=== PATIENT | female | born 1955 | race Caucasian/White ===

== ENCOUNTER 2017-03-24 09:45 | Day surgery (SDC) | payer MEDICAID ==
[~2017-03-24 09:45] MED LIST: Bupivacaine 0.5%/EPINEPHrine 1:200,000 50 ML MDV ONE
[2017-03-24] MEDS ORDERED: cefOXitin 2 GM in Sodium Chloride 0.9% 50 ML IV ONE (10:00)
[2017-03-24] MEDS ORDERED: HYDROmorphone/Normal Saline 15 MG/30 ML PCA IV PRN (10:23)
[2017-03-24] MEDS ORDERED: Naloxone 0.4 MG/ML SDV IVPUSH PRN (10:23)
[2017-03-24] MEDS ORDERED: Propofol 200 MG/20 ML SDV ONE (10:28)
[2017-03-24] MEDS ORDERED: Dexamethasone 4 MG/ML SDV ONE (10:28)
[2017-03-24] MEDS ORDERED: Midazolam 1 MG/ML 2 ML SDV ONE (10:28)
[2017-03-24] MEDS ORDERED: Rocuronium 50 MG/5 ML Vial ONE (10:28)
[2017-03-24] MEDS ORDERED: Neostigmine Methylsulfate 1 MG/ML 5 ML Syringe ONE (10:28)
[2017-03-24] MEDS ORDERED: fentaNYL 250 MCG/5 ML SDV ONE (10:28)
[2017-03-24] MEDS ORDERED: Ondansetron 4 MG/2 ML SDV ONE (10:28)
[2017-03-24] MEDS: Dextrose 5%-Lactated Ringers 1,000 ML IV SCH ×2 (10:35→17:52)
[2017-03-24] MEDS ORDERED: hydrOXYzine HCl 50 MG/ML SDV IM ONE (12:46)
[2017-03-24] MEDS ORDERED: Ondansetron 4 MG/2 ML SDV IVPUSH PRN (14:00)
[2017-03-24] MEDS ORDERED: Pantoprazole 40 MG Vial IVPUSH SCH (14:00)
[2017-03-24] MEDS ORDERED: Levothyroxine 88 MCG Tab PO SCH (14:00)
[2017-03-24] MEDS ORDERED: Lactated Ringers 500 ML IV ONE (15:15)
[2017-03-24] MEDS: cefOXitin 2 GM in Sodium Chloride 0.9% 50 ML IV SCH ×2 (18:09→23:11)
[2017-03-24] MEDS: Sertraline 50 MG Tab PO SCH (18:19)
[2017-03-24] MEDS: Levothyroxine 75 MCG Tab PO SCH (18:20)
[2017-03-24] MEDS: buPROPion 100 MG Tab PO SCH ×2 (18:20→20:54)
[2017-03-24] MEDS: Acetaminophen 500 MG Tab PO SCH ×2 (18:20→21:51)
[2017-03-24] MEDS ORDERED: diphenhydrAMINE 25 MG Cap PO PRN (22:56)
[2017-03-25] MEDS: HYDROmorphone 2 MG Tab PO PRN ×4 (02:38→16:54)
[2017-03-25] MEDS: Acetaminophen 500 MG Tab PO SCH (03:47)
[2017-03-25] MEDS: Dextrose 5%-Lactated Ringers 1,000 ML IV SCH (04:48)
[2017-03-25] MEDS: cefOXitin 2 GM in Sodium Chloride 0.9% 50 ML IV SCH ×3 (05:16→17:03)
[2017-03-25] MEDS: Levothyroxine 75 MCG Tab PO SCH (07:13)
[2017-03-25] MEDS ORDERED: Acetaminophen 500 MG Tab PO PRN (07:18)
[2017-03-25] MEDS ORDERED: Ibuprofen 800 MG Tab PO PRN (07:18)
[2017-03-25] MEDS ORDERED: PSEUDOEPHEDRINE PO SCH (09:00)
[2017-03-25] MEDS ORDERED: Sertraline 50 MG Tab PO SCH (09:00)
[2017-03-25] MEDS ORDERED: Levothyroxine 88 MCG Tab PO SCH (09:00)
[2017-03-25] MEDS ORDERED: CRANBERRY 1000 MG PO SCH ×2 (09:00)
[2017-03-25] MEDS ORDERED: CETIRIZINE PO SCH (09:00)
[2017-03-25] MEDS ORDERED: buPROPion 100 MG Tab PO SCH (09:00)
[2017-03-25] MEDS ORDERED: Non-Formulary Medication 1 Each (Omeprazole [Omeprazole] 40 MG) PO SCH (09:00)
[2017-03-25] MEDS ORDERED: Fluticasone Propionate Nasal Spray 16 GM Bottle NASBOTH SCH (09:00)
--- NOTE | 2017-03-25 09:10 | DISCH ---
ADMISSION DIAGNOSES: 1. Cholecystitis. 2. Hypothyroidism, unspecified. 3. Nasopharyngeal cancer. 4. Osteoarthritis, bilateral hips. 5. Major depression. 6. Chronic ethmoidal sinusitis. 7. Degenerative joint disease. 8. Glucose intolerance. 9. Hypercholesterolemia. 10.Colon adenoma in 2015. DISCHARGE DIAGNOSES: Laparoscopic cholecystectomy. Repair of incarcerated hernia at umbilical incisional site for biliary dyskinesia, cholelithiasis and incisional hernia. Date of surgery, 03/24/2017. HISTORY: Marixa Leal is a 61-year-old female with known cholecystitis. After preoperative evaluation and discussion of possible risks and possible complications, she wished to proceed with surgical procedure. HOSPITAL COURSE: Marixa had her surgery on 03/24/2017. She had no operative complications. She did have excessive sleepiness with anesthesia which she states is normal for her. On postop day #1, her pain was managed, her activity was good. She was eating well and taking in adequate fluids. She was ready to be discharged to home. PHYSICAL EXAMINATION: GENERAL: Fela Leal is a 61-year-old female. VITAL SIGNS: Height is 5 feet 5.5 inches, weight is 175 pounds 12.8 ounces. TPR is 98.6, 61, 18, blood pressure 126/76. HEENT: Negative. NECK: Supple. HEART: Regular rate and rhythm. LUNGS: Clear. ABDOMEN: Dressings dry and intact. Sutures look good. UMBERTO drain intact. This will be removed prior to discharge with a 4 x 4 over UMBERTO drain site. EXTREMITIES: Without peripheral edema. DISPOSITION: Discharged to home. FOLLOWUP APPOINTMENT: With Chasity Gonzalez PA-C, on 04/05/2017 at 10:00 a.m. MEDICATIONS: New prescription is Dilaudid 2 mg 1 to 2 tabs every 4 hours p.r.n. pain #40. HOME MEDICATIONS: 1. Continue acetaminophen 1000 mg every 4 hours. 2. Sertraline 5 mg daily. 3. Cranberry pills 1000 mg oral daily. 4. Flonase 2 sprays in each nostril daily. 5. Ibuprofen 800 mg oral every 8 hours. 6. Synthroid 75 mcg oral daily. 7. Omeprazole 40 mg oral daily. 8. Zoloft 100 mg oral daily. 9. Bupropion 50 mg daily. DIET AFTER DISCHARGE: Usual diet as tolerated. Drink 8 to 10 glasses of water a day. ACTIVITY AFTER DISCHARGE: No lifting greater than 10 pounds for 2 weeks. DRIVING AFTER DISCHARGE: Do not drive on pain medication. Shower bathing, may shower. Notify provider of fever, increased pain, nausea, or vomiting. Wound incision care, keep site clean and dry. Wear abdominal binder for 2 weeks and as tolerated. Use incentive spirometer 10 times every hour while awake for 2 weeks.
[2017-03-25] MEDS: buPROPion 100 MG Tab PO SCH (09:37)
[2017-03-25] MEDS: Sertraline 50 MG Tab PO SCH (09:38)
[2017-03-25] MEDS ORDERED: Pantoprazole 40 MG Tab.CR PO SCH (11:30)
[2017-03-25 15:05] VITALS: BP 88/57
--- NOTE | 2017-03-27 11:53 | OR ---
DATE OF PROCEDURE: 03/24/2017 PREOPERATIVE DIAGNOSIS: Biliary dyskinesia. POSTOPERATIVE DIAGNOSES: 1. Biliary dyskinesia associated with cholelithiasis. 2. Incisional hernia at previous umbilical incision site. OPERATIVE PROCEDURE: 1. Diagnostic laparoscopy with a cholecystectomy (14176). 2. Laparoscopic repair of incisional hernia (87293). ANESTHESIA: General. TRACK REPAIR PERSON: Chasity Gonzalez PA-C and ROSA Green INDICATION FOR PROCEDURE: This is a 61-year-old female presenting with some recurrent right upper quadrant pain radiating to the back with some nausea. A CCK-stimulated HIDA scan showed a below normal ejection fraction along with the CCK injection causing reproduction of her symptoms. Potential risks of the procedure including bleeding, infection, injury to the underlying viscera such as common bile duct as well as possibility of persistent symptoms postoperatively were all reviewed, and the patient wishes to proceed. DETAILS OF PROCEDURE: The patient was taken to the operating room and placed in a supine position. After general endotracheal anesthesia was induced, the abdomen was prepped and draped. A transverse epigastric incision was made and the peritoneal cavity entered under direct vision with an Optiview trocar inflated to 15 mmHg pressure with CO2. Laparoscope was reinserted. No underlying trocar insertion site injuries were seen. As one looked down toward the umbilicus, the patient was noted to have an incisional hernia at previous laparoscopic trocar site in the immediate subumbilical area. A transverse incision overlying this was made and the 12 mm trocar was then placed directly through the midportion of the hernia. This was then used for the camera port for the cholecystectomy phase of the procedure with the camera being brought down that location. A 5 mm trocar was then placed in the right upper quadrant. The gallbladder was then examined and noted to be edematous particularly in the area of the gallbladder neck and cystohepatic triangle. The gallbladder was retracted anteriorly and laterally, and dissection began at the gallbladder neck and continued around the gallbladder neck and cystic duct junction. Once that area was well-delineated as was the cystic artery, both structures were clipped 3 times proximally and once distally and divided. The gallbladder was then dissected off the gallbladder bed using Harmonic scalpel and delivered through the upper midline port. It was noted to contain multiple small stones within it. The area of dissection was inspected. No bleeding or bile leaks were seen. A Ivan-Lane drain was then placed through the right lateral trocar site and positioned into the area of the gallbladder bed. The camera was then brought back up to the epigastric site and each trocar at the subumbilical hernia location was then removed. This hernia was then closed with a series of 0 Vicryl sutures placed with the laparoscopic suture passer. Once these were in place with a transverse orientation in terms of the closure, the epigastric trocar was removed, the peritoneal cavity deflated with this. The sutures at the subumbilical hernia site were then tied and thus the hernia repaired. The epigastric site had passed obliquely through some musculature and not need to be closed at fascia level as there was an intact musculature underlying it. The skin at each of the incision was closed with 4-0 Vicryl skin stitch. Dressing was applied. The patient was taken to the recovery room in satisfactory condition. Physician purchasing assistant, Chasity Gonzalez, played an essential role in assisting in this case, helping to position the patient, retract structures as needed, suturing and cutting sutures when indicated, her presence improved the patient's safety and decreased the operative time. Jorge Cagle MD /[id number]
== END 2017-03-25 17:50 | disposition home or self-care (01) ==
LOC: JP.SDS 09:45 → JP.MS 13:10 → JP.SDS 03-25 17:50
PROVIDERS: ATTEND Surgery
DX: K80.10 Calculus of gallbladder with chronic cholecystitis without obstruction (principal); K43.2 Incisional hernia without obstruction or gangrene; Z88.1 Allergy status to other antibiotic agents; Z88.2 Allergy status to sulfonamides; Z91.030 Bee allergy status; Z88.8 Allergy status to other drugs, medicaments and biological substances; K21.9 Gastro-esophageal reflux disease without esophagitis; F32.9 Major depressive disorder, single episode, unspecified; E03.9 Hypothyroidism, unspecified; Z96.642 Presence of left artificial hip joint; Z98.890 Other specified postprocedural states; Z79.899 Other long term (current) drug therapy; Z91.09 Other allergy status, other than to drugs and biological substances; Z87.891 Personal history of nicotine dependence
CPT/HCPCS: 36415; 47562; 49654; 82247; 84075; 85027; 88304; 94762; A9270; C9113; J0694; J1100; J1170; J2405; J2704; J3010; J3410; J7042; J7050; J2250

== ENCOUNTER 2017-06-09 08:51 | Day surgery (SDC) | payer MEDICAID ==
[~2017-06-09 08:51] MED LIST changes: -Bupivacaine 0.5%/EPINEPHrine 1:200,000 50 ML MDV ONE; +Dextrose 5%-Lactated Ringers 1,000 ML IV SCH; +Midazolam 1 MG/ML 2 ML SDV ONE; +Propofol 200 MG/20 ML SDV ONE; +fentaNYL 100 MCG/2 ML SDV ONE
[2017-06-09] MEDS ORDERED: Dextrose 5%-Lactated Ringers 1,000 ML IV SCH ×2 (09:45→11:15)
[2017-06-09 13:05] VITALS: BP 94/60
--- NOTE | 2017-06-13 13:45 | OR ---
DATE OF PROCEDURE: 06/09/2017 PREOPERATIVE DIAGNOSIS: History of colon polyps. POSTOPERATIVE DIAGNOSIS: Normal colonoscopic examination. OPERATIVE PROCEDURE: Flexible colonoscopy. ANESTHESIA: IV sedation. INDICATION FOR PROCEDURE: This is a 61-year-old female presenting with both, a family history of colon carcinoma as well as personal history of polyps. Plan is to treat her with a followup colonoscopy with biopsies and/or polypectomy as indicated. Potential risks including bleeding and perforation were discussed, and the patient wishes to proceed. DETAILS OF PROCEDURE: The patient was taken to the operating room and placed in a left lateral decubitus position. IV sedation was administered, after which an initial digital rectal exam was performed and was unremarkable. Colonoscope was then passed into the rectum with retroflexion revealing uncomplicated hemorrhoidal columns. The scope was eventually passed to the level of the cecum. The prep was fair. There was some liquid stool present obscuring small areas of the mucosal surface to that level. There were no abnormalities noted. Specifically, no diverticula. No areas of colitis, no polyps or other signs of neoplasia. The scope was then withdrawn and the findings were reconfirmed, and the procedure concluded. The patient was taken to the recovery room in satisfactory condition. Recommendation would be to repeat this colonoscopy in 5 years given the personal family history of colon neoplasia. Jorge Cagle MD /[id number]
== END 2017-06-09 13:42 | disposition home or self-care (01) ==
LOC: JP.SDS 08:51
PROVIDERS: ATTEND Surgery
DX: Z12.11 Encounter for screening for malignant neoplasm of colon (principal); E78.00 Pure hypercholesterolemia, unspecified; E03.9 Hypothyroidism, unspecified; Z86.010 Personal history of colon polyps; Z80.0 Family history of malignant neoplasm of digestive organs; Z79.899 Other long term (current) drug therapy; Z98.890 Other specified postprocedural states
CPT/HCPCS: 45378; J2250; J2704; J3010; J7042

== ENCOUNTER 2017-06-27 10:20 | Emergency (ER) | payer MEDICAID ==
[2017-06-27 10:43] VITALS: BP 109/66
[2017-06-27] MEDS ORDERED: Triamcinolone Acetonide 40 MG/ML 1 ML MDV INJECT ONE (11:09)
--- NOTE | 2017-06-27 11:15 | EDM.PDOC ---
ED HPI GENERAL MEDICAL PROBLEM - General Chief Complaint: Skin Complaint Stated Complaint: RASH THAT REALLY ITCHES Time Seen by Provider: 06/27/17 11:17 Source of Information: Reports: Patient History Limitations: Reports: No Limitations - History of Present Illness INITIAL COMMENTS - FREE TEXT/NARRATIVE: pt arrived with a rash on her forehead and a patch on the left back area. This is not painful. . It is very itchy. Onset: Other ( started about 24 hours ago. ) Duration: Hour(s): Location: Reports: Face, Back Associated Symptoms: Reports: No Other Symptoms - Related Data Allergies Allergy/AdvReac Type Severity Reaction Status Date / Time piroxicam [From Feldene] Allergy Rash Verified 06/27/17 10:43 propoxyphene napsylate Allergy Swelling Verified 06/27/17 10:43 [From Darvocet-N] sulfamethoxazole Allergy Rash Verified 06/27/17 10:43 [From Bactrim] tizanidine Allergy Cannot Verified 06/27/17 10:43 Remember trimethoprim [From Bactrim] Allergy Rash Verified 06/27/17 10:43 venom-honey bee Allergy Swelling Verified 06/27/17 10:43 [bee venom (honey bee)] codeine AdvReac Hallucinati Verified 06/27/17 10:43 ons morphine AdvReac Hallucinati Verified 06/27/17 10:43 ons pentazocine lactate AdvReac Hallucinati Verified 06/27/17 10:43 [From Talwin] ons environmental Allergy Cannot Uncoded 06/03/17 14:30 Remember Home Meds: Home Meds Cetirizine HCl/Pseudoephedrine [ZyrTEC-D] 5 mg PO DAILY 06/22/14 [History] Omeprazole 40 mg PO DAILY 06/22/14 [History] Sertraline [Zoloft] 100 mg PO DAILY 06/22/14 [History] Acetaminophen 1,000 mg PO Q4H PRN 09/17/14 [History] Cranberry 1,000 mg PO DAILY 02/03/15 [History] Levothyroxine [Synthroid] 75 mcg PO DAILY 10/01/15 [History] buPROPion [Wellbutrin] 50 mg PO BID 10/02/15 [History] Fluticasone Propionate [Flonase] 2 spray NS DAILY 12/02/16 [History] Ibuprofen [Motrin] 800 mg PO Q8HR PRN 12/02/16 [History] HYDROmorphone [Dilaudid] 0 mg PO Q4H PRN #40 tablet 03/25/17 [Rx] Triamcinolone Acetonide 15 gm TP DAILY 05/24/17 [History] Past Medical History HEENT History: Reports: Allergic Rhinitis, Cataract, Hard of Hearing, Impaired Vision, Otitis Media, Sinusitis, Other (See Below) Other HEENT History: nosopharyngeal CA with radiotherapy Cardiovascular History: Reports: High Cholesterol, Other (See Below) Other Cardiovascular History: abnormal EKG Respiratory History: Reports: Bronchitis, Recurrent Gastrointestinal History: Reports: Chronic Constipation, Colon Polyp, Gastritis , GERD, Hiatal Hernia, Irritable Bowel Syndrome, Other (See Below) Other Gastrointestinal History: colon adenoma Genitourinary History: Reports: UTI, Recurrent, Other (See Below) Other Genitourinary History: urinary frequency 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 Dermatologic History: Reports: Eczema, Other (See Below) Other Dermatologic History: hands eczema - Infectious Disease History Infectious Disease History: Reports: Chicken Pox, Influenza, Measles, Mononucleosis, Mumps - Past Surgical History HEENT Surgical History: Reports: Cataract Surgery, Myringotomy w Tube(s) GI Surgical History: Reports: Appendectomy, Cholecystectomy, Colonoscopy, EGD Endocrine Surgical History: Reports: None Musculoskeletal Surgical History: Reports: Arthroscopic Knee, Carpal Tunnel, Ganglion Cyst, Hip Replacement, Shoulder Surgery, Other (See Below) Other Musculoskeletal Surgeries/Procedures:: foot surgery, rotator cuff repair Oncologic Surgical History: Reports: None, Other (See Below) Social & Family History - Family History Family Medical History: Noncontributory HEENT: Reports: Cataract, Impaired Vision Cardiac: Reports: Bypass, [place], Pacemaker Musculoskeletal: Reports: Osteoarthritis, Osteoporosis, RA Endocrine/Metabolic: Reports: Diabetes, type II, Hypothyroidism Oncologic: Reports: Colon - Tobacco Use Smoking Status *Q: Never Smoker Years of Tobacco use: 10 Used Tobacco, but Quit: Yes Month Tobacco Last Used: 0 Second Hand Smoke Exposure: No - Caffeine Use Caffeine Use: Reports: None - Alcohol Use Days Per Week of Alcohol Use: 0 - Recreational Drug Use Recreational Drug Use: No ED ROS GENERAL - Review of Systems Review Of Systems: See Below Constitutional: Reports: No Symptoms HEENT: Reports: No Symptoms Respiratory: Reports: No Symptoms Cardiovascular: Reports: No Symptoms Endocrine: Reports: No Symptoms GI/Abdominal: Reports: No Symptoms : Reports: No Symptoms Musculoskeletal: Reports: No Symptoms Skin: Reports: Rash Neurological: Reports: No Symptoms Psychiatric: Reports: No Symptoms Hematologic/Lymphatic: Reports: No Symptoms Immunologic: Reports: No Symptoms ED EXAM, SKIN/RASH Exam: See Below Text/Narrative:: pt arrived with a rash on the forehead and a patch on the left side of her back. Exam Limited By: No Limitations General Appearance: Alert, Anxious Ears: Normal TMs Nose: Normal Inspection Throat/Mouth: Normal Inspection Head: Atraumatic Neck: Normal Inspection Respiratory/Chest: No Respiratory Distress Cardiovascular: Regular Rate, Rhythm GI/Abdominal: Soft, Non-Tender (Female) Exam: Deferred Rectal (Female) Exam: Deferred Extremities: Normal Inspection Psychiatric: Anxious Skin: Warm Course - Vital Signs Last Recorded V/S: Last Vital Signs Temp 35.0 C L 06/27/17 10:43 Pulse 84 06/27/17 10:43 Resp 16 06/27/17 10:43 BP 109/66 06/27/17 10:43 Pulse Ox 96 06/27/17 10:43 - Orders/Labs/Meds Meds: Medications Discontinued Medications Generic Name Dose Route Start Last Admin Trade Name Lanie PRN Reason Stop Dose Admin Triamcinolone Acetonide 60 mg 06/27/17 11:09 Kenalog-40 INJECT 06/27/17 11:10 ASDIRECTED ONE - Re-Assessments/Exams Free Text/Narrative Re-Assessment/Exam: 06/27/17 11:33 pt arrived with rash which looked like poison gabriela . She was given kenalog 60mg im. Departure - Departure Time of Disposition: 11:11 Disposition: Home, Self-Care 01 Condition: Fair Clinical Impression: Poison gabriela - Discharge Information Referrals: Marlyn Villalpando MD [Primary Care Provider] - Forms: ED Department Discharge Care Plan Goals: cool pack rt eye. , kenalog cream to facial area qid-- do not use more than 1 week. benadryl 50mg q6h prn for itching. rtc if problems
== END 2017-06-27 11:37 | disposition home or self-care (01) ==
LOC: JP.ED 10:20
DX: L23.7 Allergic contact dermatitis due to plants, except food (principal); E78.00 Pure hypercholesterolemia, unspecified; K21.9 Gastro-esophageal reflux disease without esophagitis; M19.90 Unspecified osteoarthritis, unspecified site; E03.9 Hypothyroidism, unspecified; F32.9 Major depressive disorder, single episode, unspecified; M81.0 Age-related osteoporosis without current pathological fracture; Z98.890 Other specified postprocedural states; Z85.818 Personal history of malignant neoplasm of other sites of lip, oral cavity, and pharynx; Z90.49 Acquired absence of other specified parts of digestive tract; Z79.899 Other long term (current) drug therapy; Z88.5 Allergy status to narcotic agent; Z88.1 Allergy status to other antibiotic agents; Z91.030 Bee allergy status; Z88.2 Allergy status to sulfonamides
CPT/HCPCS: 96372; 99283; J3301

== ENCOUNTER 2019-04-06 14:15 | Emergency (ER) | payer MEDICAID ==
[2019-04-06 14:42] VITALS: BP 111/68
--- NOTE | 2019-04-06 14:54 | EDM.PDOC ---
ED HPI GENERAL MEDICAL PROBLEM - General Chief Complaint: Gastrointestinal Problem Stated Complaint: HEARTBURN, UPPER ABD PAIN Time Seen by Provider: 04/06/19 14:35 Source of Information: Reports: Patient History Limitations: Reports: No Limitations - History of Present Illness INITIAL COMMENTS - FREE TEXT/NARRATIVE: 63-year-old female with a known hiatal hernia, chronic reflux has been having an increase in symptoms over the past several weeks. She admits she doesn't take her Prilosec regularly, but she took some yesterday and this morning and then ate some chocolate and had significant epigastric pain for most of the morning. The only thing that helps is vanilla ice cream. Tums sometimes helps briefly. Onset: Unknown/Unsure Location: Reports: Other (Pain is in the upper abdomen, no radiation) Quality: Reports: Burning Associated Symptoms: Denies: Chest Pain, Cough, Fever/Chills, Headaches, Nausea/ Vomiting, Shortness of Breath Lower Abdominal Pain Score (Numeric/FACES): 1 - Related Data Allergies Allergy/AdvReac Type Severity Reaction Status Date / Time piroxicam [From Feldene] Allergy Rash Verified 06/27/17 10:43 propoxyphene napsylate Allergy Swelling Verified 06/27/17 10:43 [From Darvocet-N] sulfamethoxazole Allergy Rash Verified 06/27/17 10:43 [From Bactrim] tizanidine Allergy Cannot Verified 06/27/17 10:43 Remember trimethoprim [From Bactrim] Allergy Rash Verified 06/27/17 10:43 venom-honey bee Allergy Swelling Verified 06/27/17 10:43 [bee venom (honey bee)] codeine AdvReac Hallucinati Verified 06/27/17 10:43 ons morphine AdvReac Hallucinati Verified 06/27/17 10:43 ons pentazocine lactate AdvReac Hallucinati Verified 06/27/17 10:43 [From Gagan] ons environmental Allergy Cannot Uncoded 06/03/17 14:30 Remember Home Meds: Home Meds Cetirizine HCl/Pseudoephedrine [ZyrTEC-D] 5 mg PO DAILY 06/22/14 [History] Omeprazole 40 mg PO DAILY 06/22/14 [History] Sertraline [Zoloft] 100 mg PO DAILY 06/22/14 [History] Acetaminophen 1,000 mg PO Q4H PRN 09/17/14 [History] Cranberry 1,000 mg PO DAILY 02/03/15 [History] Levothyroxine [Synthroid] 75 mcg PO DAILY 10/01/15 [History] buPROPion [Wellbutrin] 50 mg PO BID 10/02/15 [History] Fluticasone Propionate [Flonase] 2 spray NS DAILY 12/02/16 [History] Ibuprofen [Motrin] 800 mg PO Q8HR PRN 12/02/16 [History] Triamcinolone Acetonide 15 gm TP DAILY 05/24/17 [History] Past Medical History HEENT History: Reports: Allergic Rhinitis, Cataract, Hard of Hearing, Impaired Vision, Otitis Media, Sinusitis, Other (See Below) Other HEENT History: nosopharyngeal CA with radiotherapy Cardiovascular History: Reports: High Cholesterol, Other (See Below) Other Cardiovascular History: abnormal EKG Respiratory History: Reports: Bronchitis, Recurrent Gastrointestinal History: Reports: Chronic Constipation, Colon Polyp, Gastritis , GERD, Hiatal Hernia, Irritable Bowel Syndrome, Other (See Below) Other Gastrointestinal History: colon adenoma Genitourinary History: Reports: UTI, Recurrent, Other (See Below) Other Genitourinary History: urinary frequency 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 Dermatologic History: Reports: Eczema, Other (See Below) Other Dermatologic History: hands eczema - Infectious Disease History Infectious Disease History: Reports: Chicken Pox, Influenza, Measles, Mononucleosis, Mumps - Past Surgical History HEENT Surgical History: Reports: Cataract Surgery, Myringotomy w Tube(s) GI Surgical History: Reports: Appendectomy, Cholecystectomy, Colonoscopy, EGD Endocrine Surgical History: Reports: None Musculoskeletal Surgical History: Reports: Arthroscopic Knee, Carpal Tunnel, Ganglion Cyst, Hip Replacement, Shoulder Surgery, Other (See Below) Other Musculoskeletal Surgeries/Procedures:: foot surgery, rotator cuff repair Oncologic Surgical History: Reports: None, Other (See Below) Social & Family History - Family History Family Medical History: Noncontributory HEENT: Reports: Cataract, Impaired Vision Cardiac: Reports: Bypass, [place], Pacemaker Musculoskeletal: Reports: Osteoarthritis, Osteoporosis, RA Endocrine/Metabolic: Reports: Diabetes, type II, Hypothyroidism Oncologic: Reports: Colon - Tobacco Use Smoking Status *Q: Never Smoker - Caffeine Use Caffeine Use: Reports: None - Recreational Drug Use Recreational Drug Use: No ED ROS GENERAL - Review of Systems Review Of Systems: See Below Constitutional: Denies: Fever, Chills HEENT: Reports: No Symptoms Respiratory: Denies: Shortness of Breath, Pleuritic Chest Pain Cardiovascular: Denies: Chest Pain GI/Abdominal: Reports: Abdominal Pain, Decreased Appetite, Nausea. Denies: Vomiting Skin: Reports: No Symptoms Neurological: Denies: Headache ED EXAM, GI/ABD - Physical Exam Exam: See Below Exam Limited By: No Limitations General Appearance: Alert, No Apparent Distress Eyes: Bilateral: Normal Appearance Respiratory/Chest: No Respiratory Distress, Lungs Clear Cardiovascular: Regular Rate, Rhythm GI/Abdominal Exam: Soft, Tender (Some discomfort and tenderness to palpation in the epigastric area, no guarding or rebound) Neurological: Alert, Oriented Skin Exam: Warm, Dry Course - Vital Signs Last Recorded V/S: Last Vital Signs Temp 97.7 F 04/06/19 14:37 Pulse 67 04/06/19 14:37 Resp 14 04/06/19 14:37 BP 111/68 04/06/19 14:37 Pulse Ox 100 04/06/19 14:37 - Orders/Labs/Meds Labs: Laboratory Tests 04/06/19 04/06/19 04/06/19 Range/Units 15:07 15:07 15:07 WBC 5.0 (4.5-11.0) K/uL RBC 3.58 (3.30-5.50) M/uL Hgb 12.2 (12.0-15.0) g/dL Hct 35.5 L (36.0-48.0) % MCV 99 H (80-98) fL MCH 34 H (27-31) pg MCHC 34 (32-36) % Plt Count 170 (150-400) K/uL Neut % (Auto) 61 (36-66) % Lymph % (Auto) 30 (24-44) % Towns % (Auto) 5 (2-6) % Eos % (Auto) 3 (2-4) % Baso % (Auto) 1 (0-1) % Sodium 134 L (140-148) mmol/L Potassium 3.9 (3.6-5.2) mmol/L Chloride 100 (100-108) mmol/L Carbon Dioxide 31 (21-32) mmol/L Anion Gap 6.9 (5.0-14.0) mmol/L BUN 16 (7-18) mg/dL Creatinine 1.6 H (0.6-1.0) mg/dL Est Cr Clr Drug Dosing TNP Estimated GFR (MDRD) 33 L (>60) Glucose 93 (74-106) mg/dL Calcium 8.9 (8.5-10.1) mg/dL Total Bilirubin 0.5 (0.2-1.0) mg/dL AST 33 (15-37) U/L ALT 27 (12-78) U/L Alkaline Phosphatase 67 (46-116) U/L Troponin I < 0.017 (0.000-0.056) ng/mL Total Protein 7.1 (6.4-8.2) g/dL Albumin 3.4 (3.4-5.0) g/dL Globulin 3.7 H (2.3-3.5) g/dL Albumin/Globulin Ratio 0.9 L (1.2-2.2) Amylase 31 (25-115) U/L Lipase 161 (73-393) U/L - Re-Assessments/Exams Free Text/Narrative Re-Assessment/Exam: 04/06/19 15:19 Two-view chest x-ray was obtained, along with CBC, CMP, amylase lipase and troponin. No treatment was needed as the patient's symptoms had almost resolved completely prior to coming to the emergency room. 04/06/19 15:48 Patient remained relatively asymptomatic while in the emergency room. Two-view chest x-ray was normal, CBC and CMP including lipase and amylase were basically normal. Troponin was 0. I discussed her symptoms with Dr. Dos Santos, he will recheck with her next Tuesday to discuss his acid reflux treatment algorithm and other possible testing procedures and she will take Prilosec daily, avoid chocolate and other aggravating foods for the next 4 days. Departure - Departure Time of Disposition: 16:07 Disposition: Home, Self-Care 01 Clinical Impression: Acid reflux disease Qualifiers: Esophagitis presence: esophagitis presence not specified Qualified Code(s): K21.9 - Gastro-esophageal reflux disease without esophagitis - Discharge Information Instructions: Gastroesophageal Reflux Disease, Adult, [id number] Referrals: Tirso Glass MD [Primary Care Provider] - Forms: ED Department Discharge Care Plan Goals: Take Prilosec daily until rechecked by Dr. Dos Santos. 40 mg a day may be worthwhile. Avoid chocolate and other aggravating foods, and recheck next Tuesday as scheduled.
--- NOTE | 2019-04-06 15:23 | CRLCR ---
INDICATION: Dyspnea TECHNIQUE: Chest radiograph 2 views COMPARISON: None FINDINGS: Mediastinum: The mediastinum is normal in appearance. The heart silhouette is normal in size and morphology. Lung: Both lungs are unremarkable in appearance. No sign of pleural effusion seen. No pneumothorax is identified. Musculoskeletal: Unremarkable for age. IMPRESSION: 1. No acute cardiopulmonary disease is seen. Dictated by: Bartolome Ramirez MD @ 04/06/2019 15:21:26 (Electronically Signed)
== END 2019-04-06 16:11 | disposition home or self-care (01) ==
LOC: JP.ED 14:15
DX: K21.9 Gastro-esophageal reflux disease without esophagitis (principal); E78.00 Pure hypercholesterolemia, unspecified; F32.9 Major depressive disorder, single episode, unspecified; E03.9 Hypothyroidism, unspecified; Z88.8 Allergy status to other drugs, medicaments and biological substances; Z88.2 Allergy status to sulfonamides; Z79.899 Other long term (current) drug therapy
CPT/HCPCS: 36415; 71046; 80053; 82150; 83690; 84484; 85025; 99283-25

== ENCOUNTER 2019-04-24 07:23 | Day surgery (SDC) | payer MEDICAID ==
[2019-04-24] MEDS ORDERED: Propofol 200 MG/20 ML SDV ONE (07:33)
[2019-04-24] MEDS ORDERED: Midazolam 1 MG/ML 2 ML SDV ONE (07:33)
[2019-04-24] MEDS ORDERED: fentaNYL 100 MCG/2 ML SDV ONE (07:33)
[2019-04-24] MEDS: Sodium Chloride 0.9% 1,000 ML IV SCH (07:52)
[2019-04-24 10:53] VITALS: BP 111/64
--- NOTE | 2019-04-24 12:12 | OR ---
DATE OF PROCEDURE: 04/24/2019 SURGEON: Drake Dos Santos MD PROCEDURES: 1. EGD. 2. Jackson pH placement. COMPLICATIONS: None. COLLECTIONS PROFESSIONAL: None. ANESTHESIA: MAC. PREOPERATIVE DIAGNOSES: Epigastric pain, dysphagia. POSTOPERATIVE DIAGNOSES: Epigastric pain, dysphagia. RISKS: Risks, benefits, alternatives, and limitations including, but not limited to infection bleeding and perforation were explained to the patient, who wished to proceed. PROCEDURE IN DETAIL: The patient was placed in left lateral decubitus position. EGD scope was introduced and advanced atraumatically to the second part of the duodenum. No evidence of duodenitis. No duodenal ulcer. Within the stomach itself, no evidence of ulceration or gastritis. On retroflex, a very small hiatal hernia was noted. The GE junction was noted to be at 35 from the bite block. The scope was removed. The esophagus was inspected, without abnormality. The Jackson device was then introduced and clipped 6 cm proximal. This was placed using standard technique. The carrier was then removed. The scope was reintroduced, and the Jackson device was noted to be perfectly placed. The patient tolerated the procedure well. Drake Dos Santos MD /[id number]
== END 2019-04-24 11:30 | disposition home or self-care (01) ==
LOC: JP.SDS 07:23
PROVIDERS: ATTEND Surgery
DX: K21.9 Gastro-esophageal reflux disease without esophagitis (principal); M19.90 Unspecified osteoarthritis, unspecified site; E28.2 Polycystic ovarian syndrome; F32.9 Major depressive disorder, single episode, unspecified; Z88.5 Allergy status to narcotic agent; Z88.2 Allergy status to sulfonamides; Z88.8 Allergy status to other drugs, medicaments and biological substances; Z88.6 Allergy status to analgesic agent; Z88.1 Allergy status to other antibiotic agents; Z91.030 Bee allergy status; Z87.09 Personal history of other diseases of the respiratory system
CPT/HCPCS: J2250; J2704; J3010; J7030

== ENCOUNTER 2019-05-31 09:02 | Day surgery (SDC) | payer MEDICAID ==
[2019-05-31] MEDS ORDERED: fentaNYL 250 MCG/5 ML SDV ONE (10:17)
[2019-05-31] MEDS ORDERED: Rocuronium 50 MG/5 ML Vial ONE (10:18)
[2019-05-31] MEDS ORDERED: Neostigmine Methylsulfate 1 MG/ML 5 ML Syringe ONE (10:18)
[2019-05-31] MEDS ORDERED: Dexamethasone 4 MG/ML SDV ONE (10:18)
[2019-05-31] MEDS ORDERED: Succinylcholine 200 MG/10 ML MDV ONE (10:18)
[2019-05-31] MEDS ORDERED: Glycopyrrolate 0.2 MG/ML 5 ML MDV ONE (10:18)
[2019-05-31] MEDS ORDERED: Ondansetron 4 MG/2 ML SDV ONE (10:18)
[2019-05-31] MEDS ORDERED: Propofol 200 MG/20 ML SDV ONE (10:18)
[2019-05-31] MEDS ORDERED: ceFAZolin 2 GM in Premix Bag 1 BAG IV ONE (10:45)
[2019-05-31] MEDS ORDERED: metroNIDAZOLE/Normal Saline 500 MG in Premix Bag 1 BAG IV ONE (10:45)
[2019-05-31] MEDS ORDERED: Ropivacaine 44 ML, dexAMETHasone 8 MG, EPINEPHrine 0.4 MG, Sodium Chloride 0.9% 33.6 ML NERVRT SCH ×4 (11:00)
[2019-05-31] MEDS ORDERED: Phenylephrine 1% 10 MG/ML SDV ONE (11:05)
[2019-05-31] MEDS ORDERED: hydrOXYzine HCl 100 MG/2 ML SDV IM PRN (13:25)
[2019-05-31] MEDS ORDERED: Benzocaine/Cetylpyridinium/Menthol Lozenge MUCMEM PRN ×2 (13:25)
[2019-05-31] MEDS ORDERED: Ketorolac 30 MG/ML SDV IVPUSH PRN (13:25)
[2019-05-31] MEDS ORDERED: Ondansetron 4 MG/2 ML SDV IVPUSH PRN (13:25)
[2019-05-31] MEDS ORDERED: fentaNYL 100 MCG/2 ML SDV IVPUSH PRN (13:25)
[2019-05-31] MEDS ORDERED: diphenhydrAMINE 50 MG/ML SDV IVPUSH PRN (13:25)
[2019-05-31] MEDS ORDERED: Bisacodyl 5 MG Tab PO PRN (13:25)
[2019-05-31] MEDS ORDERED: Ondansetron 4 MG Tab.DIS PO PRN (13:25)
[2019-05-31] MEDS: Sodium Chloride 0.9% 1,000 ML IV SCH (13:28)
[2019-05-31] MEDS: ceFAZolin 2 GM in Premix Bag 1 BAG IV SCH (17:16)
[2019-05-31] MEDS: Acetaminophen/HYDROcodone 325-10 MG Tab PO PRN (17:22)
[2019-06-01] MEDS: Sodium Chloride 0.9% 1,000 ML IV SCH (01:06)
[2019-06-01] MEDS: ceFAZolin 2 GM in Premix Bag 1 BAG IV SCH (01:10)
[2019-06-01] MEDS: Acetaminophen/HYDROcodone 325-10 MG Tab PO PRN ×4 (01:44→12:48)
[2019-06-01] MEDS ORDERED: Iopamidol 612 MG/ML 50 ML SDV PO STA (02:00)
--- NOTE | 2019-06-01 03:52 | CRLCR ---
FINAL REPORT: INDICATION: S/P MARGRET LEAK CHECK PRELIMINARY IMPRESSIONS: 1. No evidence of contrast extravasation is noted on 2 static submitted images. 2. Pneumoperitoneum is present in the left upper quadrant, likely from recent surgery. Agree with preliminary report. No additional findings. Dictated by: Coopre Sue MD @ 06/04/2019 11:18:37 (Electronically Signed) [email or web address]
--- NOTE | 2019-06-01 10:56 | PN ---
DATE OF SERVICE: 06/01/2019 SUBJECTIVE: Patient is doing very well today, tolerates diet. No nausea, vomiting, shortness of breath or chest pain. The patient is concerned about shoulder pain, which is most likely attributed to carbon dioxide. OBJECTIVE: VITAL SIGNS: Vital signs are stable, she is afebrile. CARDIOVASCULAR: Regular rhythm and rate. RESPIRATORY: Lungs are clear to auscultation bilaterally. ABDOMEN: Incisions healing well. No signs of cellulitis or infection. ASSESSMENT: Status post laparoscopic Falguni. PLAN: The patient will be discharged today. Please see discharge summary for further details. Drake Dos Santos MD /[id number]
--- NOTE | 2019-06-01 11:02 | DISCH ---
DISCHARGE DIAGNOSIS: Status post laparoscopic Falguni. SUMMARY OF HOSPITAL COURSE: A pleasant 63-year-old female underwent a laparoscopic Falguni and hiatal hernia repair without complication. On postop day #1, the patient underwent upper GI swallow study, which showed no evidence of leak or abnormality. She continued to advance her diet. Activity was good. Her pain was well controlled with p.o. pain medications. FOLLOWUP: Follow up with surgery in 7 to 14 days. ACTIVITY: No lifting greater than 30 pounds for 30 days from the date of surgery. DISCHARGE MEDICATIONS: Please see MAR, but include meloxicam pain protocol.
[2019-06-01 11:10] VITALS: BP 105/62; PULSE 64
--- NOTE | 2019-06-14 13:43 | OR ---
DATE OF PROCEDURE: 05/31/2019 SURGEON: Drake Dos Santos MD PROCEDURE: 1. Laparoscopic Falguni fundoplication with paraesophageal hernia repair with mesh ([id number]). 2. EGD. COMPLICATIONS: None. FAMILY RESOURCE COORDINATOR: None. PREOPERATIVE DIAGNOSES: Significant gastroesophageal reflux disease requiring Falguni fundoplication. In addition, hiatal hernia repair. POSTOPERATIVE DIAGNOSES: Significant gastroesophageal reflux disease requiring Falguni fundoplication. In addition, hiatal hernia repair. COMPLICATION: None. FAMILY RESOURCE COORDINATOR: None. ANESTHESIA: General/local. RISKS: Risks, benefits, alternatives, and limitations including infection, bleeding, and dysphagia were explained to the patient. The patient understands these risks, along with the possibility of open surgery, and they wished to proceed. PROCEDURE IN DETAIL: The patient was placed in supine position. At 15 cm inferior and 5 cm to the left of the sternal at the xiphoid process, a 1-cm incision was made. A Veress needle was used to enter the abdomen without abnormality and subsequently insufflated. This was followed by an Optiview trocar. No evidence of enterotomy or injury was noted after entry. Three additional 5 mm ports will be entered under direct visualization and an additional port will be placed later in the procedure. These ports will include left and right hands at the subcostal margin, an communication assistant port on the left abdomen and a single port below the xiphoid process for the liver elevation. Once these ports were placed, the right domenico would be identified and addressed first. This was dressed and mobilized in the avascular plane. This was a combination of blunt and electrocautery dissection. The anterior vagus nerve would be identified at this time, which is rather prominent and this would be avoided during this procedure. Once the right domenico had been mobilized, attention was moved to the left side of the stomach. Short gastrics were transected by elevating the stomach and omentum using Harmonic Scalpel. This was then carried up the greater curvature of the stomach and up to and into the left domenico. The splenic gastric ligaments were also mobilized at this time. The left domenico was mobilized. During this part of the procedure, moving back and forth with the left and right domenico, a Cicero drain was able to be passed across and elevated. Posterior aspect of the stomach was then mobilized. The stomach was able to be passed in the classic Falguni fundoplication manner. The shoeshine maneuver was then performed and noted to have very good movement. The Falguni was then created with approximately 1.5 cm with approximately two stitches over a 60-Faroese bougie. Once Falguni was completed, this was inspected for any abnormal bleeding and none was noted. During the aspect of the mobilization of the cruses, the paraesophageal hernia was reduced along with the associated sac. This would be repaired with anterior and posterior interrupted sutures. A Bio-A mesh was then placed and tacked into place without difficulty. An EGD was then performed. A leak test was performed with insufflating normal saline. No bubbles were noted. The gap was noted to be correct with the respective EGD. The air was removed from the stomach. The working area was inspected again. No abnormalities. The entry point was inspected for enterotomies, none was noted. The air was removed. Wounds were closed with 3-0 Vicryl and 4-0 Vicryl in interrupted running fashion. Dressings were applied. The patient tolerated the procedure well. Drake Dos Santos MD /[id number]
== END 2019-06-01 13:00 | disposition home or self-care (01) ==
LOC: JP.SDS 09:02 → UNDOADMOB 13:15 → JP.MS 13:15 → UNDODISOB 06-01 13:00 → JP.SDS 06-01 13:00
PROVIDERS: ATTEND Surgery
DX: K21.9 Gastro-esophageal reflux disease without esophagitis (principal); K44.9 Diaphragmatic hernia without obstruction or gangrene; M16.11 Unilateral primary osteoarthritis, right hip; E03.9 Hypothyroidism, unspecified; E78.00 Pure hypercholesterolemia, unspecified; N18.9 Chronic kidney disease, unspecified; F32.9 Major depressive disorder, single episode, unspecified; R73.03 Prediabetes; Z79.899 Other long term (current) drug therapy; Z91.030 Bee allergy status; Z79.891 Long term (current) use of opiate analgesic; Z88.8 Allergy status to other drugs, medicaments and biological substances; Z88.2 Allergy status to sulfonamides; Z87.891 Personal history of nicotine dependence
CPT/HCPCS: 36415; 43282; 74240; 80048; 85027; A9270; C1713; C1776; J0171; J0330; J0690; J1100; J2370; J2405; J2704; J2710; J2795; J3010; J3410; J3490; J7030; J7050; Q9967

== ENCOUNTER 2019-07-14 16:59 | Emergency (ER) | payer MEDICAID ==
[2019-07-14 19:27] VITALS: BP 113/67; PULSE 61
--- NOTE | 2019-07-14 19:41 | EDM.PDOC ---
ED HPI GENERAL MEDICAL PROBLEM - General Chief Complaint: ENT Problem Stated Complaint: LEFT EAR PAIN Time Seen by Provider: 07/14/19 19:41 Source of Information: Reports: Patient - History of Present Illness INITIAL COMMENTS - FREE TEXT/NARRATIVE: 63 yo male presents to ER for acute left ear pain which has progressively worsened over the last 3-4 days and unable to sleep due to pain. Patient was prescribed oral antibiotic, antibiotic ear drops and prednisone with minima improvement of left ear pain. Patient is tearful due to severity of pain and unable to sleep. Patient has history of nasal septal surgery and does not have her left TM. Patient was evaluated by the surgeon whom completed her Falguni surgery in May, PCP and ENT on Tuesday. ENT suctioned out purulent drainage and the ear had significant improvement. Patient has taken tramadol without improvement of pain. Patient is very frustrated with difficulty swallowing after Falguni and nasal congestion. - Related Data Allergies Allergy/AdvReac Type Severity Reaction Status Date / Time piroxicam [From Feldene] Allergy Rash Verified 07/14/19 19:19 propoxyphene napsylate Allergy Swelling Verified 07/14/19 19:19 [From Darvocet-N] sulfamethoxazole Allergy Rash Verified 07/14/19 19:19 [From Bactrim] tizanidine Allergy Cannot Verified 07/14/19 19:19 Remember trimethoprim [From Bactrim] Allergy Rash Verified 07/14/19 19:19 venom-honey bee Allergy Swelling Verified 07/14/19 19:19 [bee venom (honey bee)] codeine AdvReac Hallucinati Verified 07/14/19 19:19 ons morphine AdvReac Hallucinati Verified 07/14/19 19:19 ons pentazocine lactate AdvReac Hallucinati Verified 07/14/19 19:19 [From Gagan] ons environmental Allergy Cannot Uncoded 07/14/19 19:19 Remember Home Meds: Home Meds Cetirizine HCl/Pseudoephedrine [ZyrTEC-D] 10 mg PO DAILY 06/22/14 [History] Omeprazole 40 mg PO BID 06/22/14 [History] Sertraline [Zoloft] 100 mg PO DAILY 06/22/14 [History] Acetaminophen 1,000 mg PO Q4H PRN 09/17/14 [History] Cranberry 1,000 mg PO DAILY 02/03/15 [History] Levothyroxine [Synthroid] 100 mcg PO DAILY 10/01/15 [History] buPROPion [Wellbutrin] 50 mg PO DAILY 10/02/15 [History] Fluticasone Propionate [Flonase] 2 spray NS DAILY 12/02/16 [History] Triamcinolone Acetonide 1 applic TP BID 05/24/17 [History] Calcium Carbonate [Calcium] 500 mg PO BID 04/20/19 [History] Diclofenac Sodium [Voltaren] 1 applic TP QID 04/20/19 [History] Montelukast Sodium [Singulair] 10 mg PO BEDTIME 04/20/19 [History] Cefdinir [Omnicef] 07/14/19 [History] Ofloxacin 07/14/19 [History] predniSONE 07/14/19 [History] Past Medical History HEENT History: Reports: Allergic Rhinitis, Cataract, Hard of Hearing, Impaired Vision, Otitis Media, Sinusitis, Other (See Below) 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 Cardiovascular History: Reports: High Cholesterol, Other (See Below) Other Cardiovascular History: abnormal EKG Respiratory History: Reports: Bronchitis, Recurrent Gastrointestinal History: Reports: Chronic Constipation, Colon Polyp, Gastritis , GERD, Hiatal Hernia, Irritable Bowel Syndrome, Other (See Below) Other Gastrointestinal History: colon adenoma Genitourinary History: Reports: UTI, Recurrent, Other (See Below) Other Genitourinary History: urinary frequency PUBLICITY PERSON History: Reports: Fibroids, Polycystic Ovaries Musculoskeletal History: Reports: Osteoarthritis, Other (See Below) Other Musculoskeletal History: degenerative joint disease Neurological History: Reports: Concussion, Vertigo, Other (See Below) Other Neuro History: left ear deaf Psychiatric History: Reports: Depression Endocrine/Metabolic History: Reports: Hypothyroidism, Obesity/BMI 30+, Osteoporosis Oncologic (Cancer) History: Reports: Other (See Below) Other Oncologic History: positive colon biopsy, nasopharyngeal cancer. Dermatologic History: Reports: Eczema, Other (See Below) Other Dermatologic History: hands eczema - Infectious Disease History Infectious Disease History: Reports: Chicken Pox, Measles, Mumps - Past Surgical History HEENT Surgical History: Reports: Cataract Surgery, Myringotomy w Tube(s) Cardiovascular Surgical History: Reports: None Respiratory Surgical History: Reports: None GI Surgical History: Reports: Appendectomy, Cholecystectomy, Colonoscopy, EGD, Falguni Fundoplication Female Surgical History: Reports: None Endocrine Surgical History: Reports: None Neurological Surgical History: Reports: None Musculoskeletal Surgical History: Reports: Arthroscopic Knee, Carpal Tunnel, Ganglion Cyst, Hip Replacement, Shoulder Surgery, Other (See Below) Other Musculoskeletal Surgeries/Procedures:: foot surgery, rotator cuff repair Oncologic Surgical History: Reports: None, Other (See Below) Social & Family History - Family History Family Medical History: Noncontributory HEENT: Reports: Cataract, Impaired Vision Cardiac: Reports: Bypass, [place], Pacemaker Musculoskeletal: Reports: Osteoarthritis, Osteoporosis, RA Endocrine/Metabolic: Reports: Diabetes, type II, Hypothyroidism Oncologic: Reports: Colon - Tobacco Use Smoking Status *Q: Never Smoker - Caffeine Use Caffeine Use: Reports: None ED ROS ENT - Review of Systems Review Of Systems: ROS reveals no pertinent complaints other than HPI. ED EXAM, ENT - Physical Exam Exam: See Below Exam Limited By: No Limitations General Appearance: Alert, WD/WN, Severe Distress (due to severity of ear pain and not sleeping) Eye Exam: Bilateral Eye: EOMI, PERRL Ears: Hearing Grossly Normal, Normal TMs, Hearing Loss, Auricular Tenderness ( pain with trigus manipulation. No outer ear inflammation and swelling noted. ). No: Mastoid Swelling, Mastoid Tenderness Nose: Normal Inspection, Normal Mucousa, Clear Rhinorrhea Mouth/Throat: Normal Inspection, Normal Gums, Normal Lips, Normal Oropharynx. No: Normal Teeth (no teeth) Head: Atraumatic, Normocephalic Neck: Normal Inspection, Supple, Non-Tender, Full Range of Motion Respiratory/Chest: No Respiratory Distress, Lungs Clear, Normal Breath Sounds, No Accessory Muscle Use, Chest Non-Tender Cardiovascular: Normal Peripheral Pulses, Regular Rate, Rhythm GI/Abdominal: Normal Bowel Sounds, Soft, Non-Tender Back: Normal Inspection, Full Range of Motion Neurological: Alert, Oriented, CN II-XII Intact, Normal Cognition, Normal Gait, Normal Reflexes, No Motor/Sensory Deficits Psychiatric: Depressed Mood, Tearful Skin: Warm, Dry, Intact, Normal Color, No Rash ED ENT PROCEDURES - Additional/Other Procedure(s) Other (Free Text) Procedure(s): Lidocaine 4% place in left ear but fluid went through to back of her throat. Ear wick placed in in left auditory canal to help keep fluid in the location of pain. Patient was lying on her right ear for 15 minutes with improvement of pain. Patient's pain was much improved and comfortable going home at this time. Course - Vital Signs Last Recorded V/S: Last Vital Signs Temp 34.8 C L 07/14/19 19:24 Pulse 61 07/14/19 19:24 Resp 14 07/14/19 19:24 BP 113/67 07/14/19 19:24 Pulse Ox 96 07/14/19 19:24 - Orders/Labs/Meds Meds: Medications Discontinued Medications Generic Name Dose Route Start Last Admin Trade Name Lanie PRNeville Reason Stop Dose Admin Lidocaine 4 ml 07/14/19 19:52 Lta 360 Kit Top Soln TOP 07/14/19 19:53 ONETIME ONE Lidocaine HCl Confirm 07/14/19 19:55 Xylocaine 4% Top Soln Administered 07/14/19 19:56 Dose 50 ml .ROUTE .STK-MED ONE Lidocaine HCl 1 ml 07/14/19 19:57 07/14/19 19:57 Xylocaine 4% Top Soln TOP 07/14/19 19:58 1 ml ONETIME ONE Administration Departure - Departure Time of Disposition: 21:07 Disposition: Home, Self-Care 01 Clinical Impression: Otitis externa - Discharge Information Instructions: Ear Drops, Adult, Otitis Externa Referrals: PCP,None [Primary Care Provider] - Forms: ED Department Discharge Additional Instructions: 1. ENT Tuesday for repeat assessment of left ear pain. 2. Lidocaine 4% liquid 0.1cc in left ear every 2hrs as needed for pain. 3. May take Tylenol and Tramadol as needed for pain if needed. 4. Continue oral antibiotic and antibiotic ear drops between lidocaine drops for pain. 5. Call PCP Tuesday to discuss pain management if concerns continued. - Problem List & Annotations (1) Otitis externa SNOMED Code(s): 2392875 Code(s): H60.90 - UNSPECIFIED OTITIS EXTERNA, UNSPECIFIED EAR Status: Acute Current Visit: Yes
[2019-07-14] MEDS ORDERED: Lidocaine 4% Top Soln LTA 4 ML Syringe Kit TOP ONE (19:52)
[2019-07-14] MEDS ORDERED: Lidocaine 4% Top Soln 50 ML Bottle ONE (19:55)
[2019-07-14] MEDS ORDERED: Lidocaine 4% Top Soln 50 ML Bottle TOP ONE ×2 (19:57)
== END 2019-07-14 21:20 | disposition home or self-care (01) ==
LOC: JP.ED 16:59
DX: H60.92 Unspecified otitis externa, left ear (principal); E03.9 Hypothyroidism, unspecified; E66.9 Obesity, unspecified; Z79.899 Other long term (current) drug therapy; Z91.030 Bee allergy status; Z88.2 Allergy status to sulfonamides; Z88.8 Allergy status to other drugs, medicaments and biological substances; Z90.49 Acquired absence of other specified parts of digestive tract; Z96.22 Myringotomy tube(s) status
CPT/HCPCS: 99282; A9270

== ENCOUNTER 2019-08-14 17:04 | Emergency (ER) | payer MEDICAID ==
[2019-08-14] MEDS ORDERED: Aspirin 81 MG Tab.Chew PO ONE (17:20)
--- NOTE | 2019-08-14 17:37 | EDM.PDOC ---
ED HPI GENERAL MEDICAL PROBLEM - General Chief Complaint: Chest Pain Stated Complaint: CHEST PAINS Time Seen by Provider: 08/14/19 17:10 Source of Information: Reports: Patient History Limitations: Reports: No Limitations - History of Present Illness INITIAL COMMENTS - FREE TEXT/NARRATIVE: 63-year-old female developed upper abdominal and substernal chest pressure while leaning forward and sorting out a box of buttons. No shortness of breath or diaphoresis, mild nausea but no vomiting. The pressure started substernal and seemed to work its way up into the chest over the course of 20-30 minutes. It did not hurt to breathe, she had no radiation of pain to her back shoulders or jaw. It scared her so she came in to be seen, by the time she got here it was almost gone. An EKG and aspirin were given on arrival. She has no history of coronary artery disease or heart problems, she has a lot in her family and she had a stress test a few years ago and did fine. She has had a Falguni procedure for reflux. Onset: Sudden Duration: Hour(s): (45 minutes ago) Location: Reports: Chest Quality: Reports: Dull, Pressure Associated Symptoms: Reports: No Other Symptoms - Related Data Allergies Allergy/AdvReac Type Severity Reaction Status Date / Time piroxicam [From Feldene] Allergy Rash Verified 08/14/19 17:20 propoxyphene napsylate Allergy Swelling Verified 08/14/19 17:20 [From Darvocet-N] sulfamethoxazole Allergy Rash Verified 08/14/19 17:20 [From Bactrim] tizanidine Allergy Cannot Verified 08/14/19 17:20 Remember trimethoprim [From Bactrim] Allergy Rash Verified 08/14/19 17:20 venom-honey bee Allergy Swelling Verified 08/14/19 17:20 [bee venom (honey bee)] codeine AdvReac Hallucinati Verified 08/14/19 17:20 ons morphine AdvReac Hallucinati Verified 08/14/19 17:20 ons pentazocine lactate AdvReac Hallucinati Verified 08/14/19 17:20 [From Gagan] ons environmental Allergy Cannot Uncoded 08/14/19 17:20 Remember Home Meds: Home Meds Cetirizine HCl/Pseudoephedrine [ZyrTEC-D] 10 mg PO DAILY 06/22/14 [History] Sertraline [Zoloft] 100 mg PO DAILY 06/22/14 [History] Acetaminophen 1,000 mg PO Q4H PRN 09/17/14 [History] Cranberry 1,000 mg PO DAILY 02/03/15 [History] Levothyroxine [Synthroid] 100 mcg PO DAILY 10/01/15 [History] buPROPion [Wellbutrin] 50 mg PO DAILY 10/02/15 [History] Calcium Carbonate [Calcium] 500 mg PO BID 04/20/19 [History] Diclofenac Sodium [Voltaren] 1 applic TP QID 04/20/19 [History] Montelukast Sodium [Singulair] 10 mg PO BEDTIME 04/20/19 [History] Past Medical History HEENT History: Reports: Allergic Rhinitis, Cataract, Hard of Hearing, Impaired Vision, Otitis Media, Sinusitis, Other (See Below) 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 Dermatologic History: Reports: Eczema, Other (See Below) Other Dermatologic History: hands eczema - Infectious Disease History Infectious Disease History: Reports: Chicken Pox, Measles, Mumps - Past Surgical History HEENT Surgical History: Reports: Cataract Surgery, Myringotomy w Tube(s) Cardiovascular Surgical History: Reports: None Respiratory Surgical History: Reports: None GI Surgical History: Reports: Appendectomy, Cholecystectomy, Colonoscopy, EGD, Falguni Fundoplication Female Surgical History: Reports: None Endocrine Surgical History: Reports: None Neurological Surgical History: Reports: None Musculoskeletal Surgical History: Reports: Arthroscopic Knee, Carpal Tunnel, Ganglion Cyst, Hip Replacement, Shoulder Surgery, Other (See Below) Other Musculoskeletal Surgeries/Procedures:: foot surgery, rotator cuff repair Oncologic Surgical History: Reports: None, Other (See Below) Social & Family History - Family History Family Medical History: Noncontributory HEENT: Reports: Cataract, Impaired Vision Cardiac: Reports: Bypass, [place], Pacemaker Musculoskeletal: Reports: Osteoarthritis, Osteoporosis, RA Endocrine/Metabolic: Reports: Diabetes, type II, Hypothyroidism Oncologic: Reports: Colon - Tobacco Use Smoking Status *Q: Former Smoker Used Tobacco, but Quit: Yes Month/Year Tobacco Last Used: 1984 - Caffeine Use Caffeine Use: Reports: None - Recreational Drug Use Recreational Drug Use: No ED ROS GENERAL - Review of Systems Review Of Systems: See Below Constitutional: Denies: Fever, Chills, Decreased Appetite HEENT: Reports: No Symptoms Respiratory: Denies: Shortness of Breath Cardiovascular: Reports: Chest Pain. Denies: Dyspnea on Exertion, Edema, Palpitations GI/Abdominal: Denies: Abdominal Pain, Nausea, Vomiting Skin: Reports: No Symptoms Neurological: Reports: No Symptoms ED EXAM, GENERAL - Physical Exam Exam: See Below Exam Limited By: No Limitations General Appearance: Alert, No Apparent Distress Head: Atraumatic Respiratory/Chest: No Respiratory Distress, Lungs Clear Cardiovascular: Regular Rate, Rhythm. No: Extra Beats GI/Abdominal: Soft, Non-Tender Neurological: Alert, Oriented EKG INTERPRETATION Rhythm: NSR EKG Interpretation Comments: EKG does show some flattening and inverted T waves on the anterior leads, however they are to identical to 2015. Course - Vital Signs Last Recorded V/S: Last Vital Signs Temp 97.3 F 08/14/19 17:16 Pulse 60 08/14/19 18:08 Resp 16 08/14/19 18:08 BP 104/72 08/14/19 18:08 Pulse Ox 97 08/14/19 18:08 - Orders/Labs/Meds Orders: Active Orders 24 hr Category Date Time Status EKG Documentation Completion [RC] ASDIRECTED Care 08/14/19 17:20 Active EKG 12 Lead [EK] Routine Ther 08/14/19 17:19 Ordered Labs: Laboratory Tests 10/22/19 10/22/19 Range/Units 17:28 17:28 WBC 6.4 (4.5-11.0) K/uL RBC 3.85 (3.30-5.50) M/uL Hgb 13.0 (12.0-15.0) g/dL Hct 37.7 (36.0-48.0) % MCV 98 (80-98) fL MCH 34 H (27-31) pg MCHC 35 (32-36) % Plt Count 216 (150-400) K/uL Neut % (Auto) 63 (36-66) % Lymph % (Auto) 29 (24-44) % Benzie % (Auto) 6 (2-6) % Eos % (Auto) 1 L (2-4) % Baso % (Auto) 1 (0-1) % Sodium 138 L (140-148) mmol/L Potassium 4.9 (3.6-5.2) mmol/L Chloride 103 (100-108) mmol/L Carbon Dioxide 26 (21-32) mmol/L Anion Gap 13.9 (5.0-14.0) mmol/L BUN 19 H D (7-18) mg/dL Creatinine 1.4 H (0.6-1.0) mg/dL Est Cr Clr Drug Dosing 37.97 mL/min Estimated GFR (MDRD) 38 L (>60) Glucose 97 (74-106) mg/dL Calcium 8.9 (8.5-10.1) mg/dL Total Bilirubin 0.4 (0.2-1.0) mg/dL AST 32 (15-37) U/L ALT 23 (12-78) U/L Alkaline Phosphatase 73 (46-116) U/L Troponin I < 0.017 (0.000-0.056) ng/mL Total Protein 7.2 (6.4-8.2) g/dL Albumin 3.5 (3.4-5.0) g/dL Globulin 3.7 H (2.3-3.5) g/dL Albumin/Globulin Ratio 1.0 L (1.2-2.2) Meds: Medications Discontinued Medications Generic Name Dose Route Start Last Admin Trade Name Freq PRN Reason Stop Dose Admin Aspirin 324 mg 08/14/19 17:20 08/14/19 17:29 Aspirin PO 08/14/19 17:21 324 mg ONETIME ONE Administration - Re-Assessments/Exams Free Text/Narrative Re-Assessment/Exam: 08/14/19 17:42 EKG was started on arrival, 324 mg of chewable aspirin given. She did not have enough symptoms to need nitroglycerin or any other treatment. The EKG was identical to [address] changes that were acute. CBC, CMP and troponin were obtained. 08/14/19 18:24 Labs returned reassuring, troponin is 0, electrolytes normal. Patient developed no further symptoms while in the emergency room. We discussed further workup possibilities and options including repeating a troponin in 4 hours or returning tomorrow for repeat labs and reassessment. She strongly wanted to be discharged, and will return tomorrow to repeat the troponin unless she feels completely normal and feels there is no need for repeat labs. Departure - Departure Time of Disposition: 18:44 Disposition: Home, Self-Care 01 Clinical Impression: Atypical chest pain - Discharge Information Instructions: Nonspecific Chest Pain Referrals: PCP,None [Primary Care Provider] - Forms: ED Department Discharge Care Plan Goals: Continue any current medications and activity. Return tomorrow for repeat labs if you have any concern. If you feel completely normal without shortness of breath or pain you may return only if you feel necessary. - My Orders Last 24 Hours: My Active Orders 08/14/19 17:19 EKG 12 Lead [EK] Routine 08/14/19 17:20 EKG Documentation Completion [RC] ASDIRECTED - Assessment/Plan Last 24 Hours: My Active Orders 08/14/19 17:19 EKG 12 Lead [EK] Routine 08/14/19 17:20 EKG Documentation Completion [RC] ASDIRECTED
[2019-08-14 18:09] VITALS: BP 104/72; PULSE 60
== END 2019-08-14 18:44 | disposition home or self-care (01) ==
LOC: JP.ED 17:04
DX: R07.89 Other chest pain (principal); F32.9 Major depressive disorder, single episode, unspecified; E66.9 Obesity, unspecified; E03.9 Hypothyroidism, unspecified; Z88.6 Allergy status to analgesic agent; Z88.1 Allergy status to other antibiotic agents; Z88.5 Allergy status to narcotic agent; Z88.2 Allergy status to sulfonamides; Z79.891 Long term (current) use of opiate analgesic; Z68.28 Body mass index [BMI] 28.0-28.9, adult; Z85.22 Personal history of malignant neoplasm of nasal cavities, middle ear, and accessory sinuses
CPT/HCPCS: 36415; 80053; 84484; 85025; 93005; 99284; A9270

== ENCOUNTER 2019-09-02 11:34 | Emergency (ER) | payer MEDICAID ==
[2019-09-02 11:57] VITALS: BP 98/77; PULSE 70
[2019-09-02] MEDS ORDERED: Acetaminophen 325 MG Tab PO ONE (13:21)
[2019-09-02] MEDS ORDERED: Lidocaine 5% 700 MG Patch TOP ONE (13:21)
--- NOTE | 2019-09-02 13:51 | CRLCR ---
INDICATION: RIGHT LOWER RIB INJURY/PAINPREV CHEST XR FROM 05-06-2019 SENT TECHNIQUE: Chest 2 views. COMPARISON: None. FINDINGS: Cardiovascular and mediastinum: Heart size and vasculature are normal in caliber and appearance. Mediastinum is within normal limits. Lungs and pleural spaces: Lungs are clear. No sign of infiltrate or mass. No sign of pleural effusion. No pneumothorax. Bones and soft tissues: No significant findings. IMPRESSION: Unremarkable chest. Dictated by: Roberto Perez MD @ 09/02/2019 13:48:58 (Electronically Signed)
--- NOTE | 2019-09-02 14:03 | EDM.PDOC ---
ED HPI GENERAL MEDICAL PROBLEM - General Chief Complaint: General Stated Complaint: PAIN IN THE RIB AREA Time Seen by Provider: 09/02/19 12:45 Source of Information: Reports: Patient, Family - History of Present Illness INITIAL COMMENTS - FREE TEXT/NARRATIVE: 63 yo female presents with vague right lower rib pain. Patient had have been packing boxes and moving. Patient denies fall or injury. She has difficulty with balance and has caught herself form falling a number of time due to increase trip hazards at home. Patient has pain with deep breathing. She has not taken any OTC medication for pain today. Pain started yesterday but worsen after waking this am. Right Chest Pain Score (Numeric/FACES): 2 - Related Data Allergies Allergy/AdvReac Type Severity Reaction Status Date / Time piroxicam [From Feldene] Allergy Rash Verified 09/02/19 12:25 propoxyphene napsylate Allergy Swelling Verified 09/02/19 12:25 [From Darvocet-N] sulfamethoxazole Allergy Rash Verified 09/02/19 12:25 [From Bactrim] tizanidine Allergy Cannot Verified 09/02/19 12:25 Remember trimethoprim [From Bactrim] Allergy Rash Verified 09/02/19 12:25 venom-honey bee Allergy Swelling Verified 09/02/19 12:25 [bee venom (honey bee)] codeine AdvReac Hallucinati Verified 09/02/19 12:25 ons morphine AdvReac Hallucinati Verified 09/02/19 12:25 ons pentazocine lactate AdvReac Hallucinati Verified 09/02/19 12:25 [From Gagan] ons environmental Allergy Cannot Uncoded 08/14/19 17:20 Remember Home Meds: Home Meds Cetirizine HCl/Pseudoephedrine [ZyrTEC-D] 10 mg PO DAILY 06/22/14 [History] Sertraline [Zoloft] 100 mg PO DAILY 06/22/14 [History] Acetaminophen 1,000 mg PO Q4H PRN 09/17/14 [History] Cranberry 1,000 mg PO DAILY 02/03/15 [History] Levothyroxine [Synthroid] 100 mcg PO DAILY 10/01/15 [History] buPROPion [Wellbutrin] 50 mg PO DAILY 10/02/15 [History] Calcium Carbonate [Calcium] 500 mg PO BID 04/20/19 [History] Diclofenac Sodium [Voltaren] 1 applic TP QID 04/20/19 [History] Montelukast Sodium [Singulair] 10 mg PO BEDTIME 04/20/19 [History] Clotrimazole 4 drop EARLF BID 09/02/19 [History] Lidocaine 5% [Lidoderm 5%] 700 mg .XX DAILY 12 Days #12 patch 09/02/19 [Rx] Past Medical History HEENT History: Reports: Allergic Rhinitis, Cataract, Hard of Hearing, Impaired Vision, Otitis Media, Sinusitis, Other (See Below) 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 Dermatologic History: Reports: Eczema, Other (See Below) Other Dermatologic History: hands eczema - Infectious Disease History Infectious Disease History: Reports: Chicken Pox, Measles, Mumps - Past Surgical History HEENT Surgical History: Reports: Cataract Surgery, Myringotomy w Tube(s) GI Surgical History: Reports: Appendectomy, Cholecystectomy, Colonoscopy, EGD, Falguni Fundoplication Musculoskeletal Surgical History: Reports: Arthroscopic Knee, Carpal Tunnel, Ganglion Cyst, Hip Replacement, Shoulder Surgery, Other (See Below) Other Musculoskeletal Surgeries/Procedures:: foot surgery, rotator cuff repair Oncologic Surgical History: Reports: Other (See Below) Social & Family History - Family History Family Medical History: Noncontributory HEENT: Reports: Cataract, Impaired Vision Cardiac: Reports: Bypass, [place], Pacemaker Musculoskeletal: Reports: Osteoarthritis, Osteoporosis, RA Endocrine/Metabolic: Reports: Diabetes, type II, Hypothyroidism Oncologic: Reports: Colon - Tobacco Use Smoking Status *Q: Never Smoker - Caffeine Use Caffeine Use: Reports: None - Recreational Drug Use Recreational Drug Use: No ED ROS GENERAL - Review of Systems Review Of Systems: ROS reveals no pertinent complaints other than HPI. ED EXAM, GENERAL - Physical Exam Exam: See Below Exam Limited By: No Limitations General Appearance: Alert, WD/WN, No Apparent Distress Eye Exam: Bilateral Eye: EOMI Neck: Normal Inspection, Supple, Full Range of Motion Respiratory/Chest: No Respiratory Distress, Lungs Clear, Normal Breath Sounds, No Accessory Muscle Use, Other (tenderness right inferior anterior and lateral chest wall to palpation. No swelling erythema rashes or lesions noted. ) Course - Vital Signs Last Recorded V/S: Last Vital Signs Temp 37.1 C 09/02/19 12:23 Pulse 70 09/02/19 12:23 Resp 17 09/02/19 12:23 BP 98/77 09/02/19 12:23 Pulse Ox 95 09/02/19 12:23 - Orders/Labs/Meds Meds: Medications Discontinued Medications Generic Name Dose Route Start Last Admin Trade Name Lucasq PRN Reason Stop Dose Admin Acetaminophen 650 mg 09/02/19 13:21 09/02/19 13:56 Tylenol PO 09/02/19 13:22 650 mg NOW ONE Administration Lidocaine 700 mg 09/02/19 13:21 09/02/19 13:56 Lidoderm 5% TOP 09/02/19 13:22 700 mg ONETIME ONE Administration - Radiology Interpretation Free Text/Narrative:: CXR PA/LAT: No acute cardiopulmonary findings noted. Radiology report reviewed with patient and copy of report offered. Departure - Departure Time of Disposition: 14:00 Disposition: Home, Self-Care 01 Clinical Impression: Chest wall pain - Discharge Information Prescriptions: Lidocaine 5% [Lidoderm 5%] 700 mg .XX DAILY 12 Days #12 patch Instructions: Chest Wall Pain Referrals: Tirso Glass MD [Primary Care Provider] - Forms: ED Department Discharge Additional Instructions: 1. Lidoderm Patch every am and remove at night. #12 2. Tylenol 650mg every 4-6 hours for pain as needed. 3. Motrin 600mg every 6-8 hours for pain, muscle inflammation and swelling ( with food). 4. Heat 15-20 minutes 2-3 time per day for pain and discomfort. 5. Call PCP this week if not improving in the next 1-2 weeks. 6. Return to ER if symptoms worsen or new concerns. - Problem List & Annotations (1) Chest wall pain SNOMED Code(s): 302809783 Code(s): R07.89 - OTHER CHEST PAIN Status: Acute
== END 2019-09-02 14:33 | disposition home or self-care (01) ==
LOC: JP.ED 11:34
DX: R07.89 Other chest pain (principal); R07.81 Pleurodynia; E66.9 Obesity, unspecified; E03.9 Hypothyroidism, unspecified; Z88.1 Allergy status to other antibiotic agents; Z91.030 Bee allergy status; Z88.5 Allergy status to narcotic agent; Z88.8 Allergy status to other drugs, medicaments and biological substances; Z91.09 Other allergy status, other than to drugs and biological substances; Z79.899 Other long term (current) drug therapy; Z68.28 Body mass index [BMI] 28.0-28.9, adult
CPT/HCPCS: 71046; 99283; A9270

== ENCOUNTER 2019-10-19 03:25 | Emergency (ER) | payer MEDICAID ==
[2019-10-19 03:45] VITALS: BP 115/71; PULSE 61
--- NOTE | 2019-10-19 04:02 | EDM.PDOC ---
ED HPI GENERAL MEDICAL PROBLEM - General Chief Complaint: Lower Extremity Injury/Pain Stated Complaint: PAIN LEFT INNER THIGH Time Seen by Provider: 10/19/19 03:45 Source of Information: Reports: Patient History Limitations: Reports: No Limitations - History of Present Illness INITIAL COMMENTS - FREE TEXT/NARRATIVE: 63-year-old female with a dull ache behind her left thigh for the past 2 days, hurts to bear weight but she does not remember any specific injury. She has a remote history of a DVT, tonight she could not sleep because she was worrying about possibly having a DVT so came in to be seen. She has no distal edema, no popliteal tenderness, no swelling or bruising. Denies shortness of breath or chest pain. Onset: Gradual Duration: Day(s): (2 days) Location: Reports: Lower Extremity, Left Associated Symptoms: Reports: No Other Symptoms Treatments BAIL BOND AGENT: Reports: Other (see below) Other Treatments BAIL BOND AGENT: none Inner Left Thigh Pain Score (Numeric/FACES): 5 - Related Data Allergies Allergy/AdvReac Type Severity Reaction Status Date / Time piroxicam [From Feldene] Allergy Rash Verified 10/19/19 03:47 propoxyphene napsylate Allergy Swelling Verified 10/19/19 03:47 [From Darvocet-N] sulfamethoxazole Allergy Rash Verified 10/19/19 03:47 [From Bactrim] tizanidine Allergy Cannot Verified 10/19/19 03:47 Remember trimethoprim [From Bactrim] Allergy Rash Verified 10/19/19 03:47 venom-honey bee Allergy Swelling Verified 10/19/19 03:47 [bee venom (honey bee)] codeine AdvReac Hallucinati Verified 10/19/19 03:47 ons morphine AdvReac Hallucinati Verified 10/19/19 03:47 ons pentazocine lactate AdvReac Hallucinati Verified 10/19/19 03:47 [From Talwin] ons environmental Allergy Cannot Uncoded 10/19/19 03:47 Remember Home Meds: Home Meds Cetirizine HCl/Pseudoephedrine [ZyrTEC-D] 10 mg PO DAILY 06/22/14 [History] Sertraline [Zoloft] 100 mg PO DAILY 06/22/14 [History] Acetaminophen 1,000 mg PO Q4H PRN 09/17/14 [History] Cranberry 1,000 mg PO DAILY 02/03/15 [History] Levothyroxine [Synthroid] 100 mcg PO DAILY 10/01/15 [History] buPROPion [Wellbutrin] 50 mg PO DAILY 10/02/15 [History] Calcium Carbonate [Calcium] 500 mg PO BID 04/20/19 [History] Diclofenac Sodium [Voltaren] 1 applic TP QID 04/20/19 [History] Montelukast Sodium [Singulair] 10 mg PO BEDTIME 04/20/19 [History] Clotrimazole 4 drop EARLF BID 09/02/19 [History] Lidocaine 5% [Lidoderm 5%] 700 mg .XX DAILY 12 Days #12 patch 09/02/19 [Rx] Past Medical History HEENT History: Reports: Allergic Rhinitis, Cataract, Hard of Hearing, Impaired Vision, Otitis Media, Sinusitis, Other (See Below) 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 Dermatologic History: Reports: Eczema, Other (See Below) Other Dermatologic History: hands eczema - Infectious Disease History Infectious Disease History: Reports: Chicken Pox, Measles, Mumps - Past Surgical History HEENT Surgical History: Reports: Cataract Surgery, Myringotomy w Tube(s) GI Surgical History: Reports: Appendectomy, Cholecystectomy, Colonoscopy, EGD, Falguni Fundoplication Musculoskeletal Surgical History: Reports: Arthroscopic Knee, Carpal Tunnel, Ganglion Cyst, Hip Replacement, Shoulder Surgery, Other (See Below) Other Musculoskeletal Surgeries/Procedures:: foot surgery, rotator cuff repair Oncologic Surgical History: Reports: Other (See Below) Social & Family History - Family History Family Medical History: Noncontributory HEENT: Reports: Cataract, Impaired Vision Cardiac: Reports: Bypass, [place], Pacemaker Musculoskeletal: Reports: Osteoarthritis, Osteoporosis, RA Endocrine/Metabolic: Reports: Diabetes, type II, Hypothyroidism Oncologic: Reports: Colon - Caffeine Use Caffeine Use: Reports: None Review of Systems - Review of Systems Review Of Systems: See Below Constitutional: Denies: Fever Respiratory: Denies: Shortness of Breath, Wheezing Cardiovascular: Denies: Chest Pain, Lightheadedness, Palpitations Musculoskeletal: Reports: Leg Pain (Left hamstring area and medial thigh only) Skin: Denies: Bruising ED EXAM, GENERAL - Physical Exam Exam: See Below Exam Limited By: No Limitations General Appearance: Alert, No Apparent Distress Head: Atraumatic Respiratory/Chest: No Respiratory Distress Cardiovascular: Regular Rate, Rhythm Extremities: Other (Exam of the lower extremity shows symmetry, no edema or bruising. Palpation of the left leg reveals no tenderness except for the medial hamstring on the left side. No popliteal tenderness or calf tenderness.) Neurological: Alert, Oriented Psychiatric: Normal Affect, Normal Mood Course - Vital Signs Last Recorded V/S: Last Vital Signs Temp 97.2 F 10/19/19 03:37 Pulse 61 10/19/19 03:37 Resp 14 10/19/19 03:37 BP 115/71 10/19/19 03:37 Pulse Ox 99 10/19/19 03:37 - Re-Assessments/Exams Free Text/Narrative Re-Assessment/Exam: 10/19/19 04:00 Despite the patient's previous history of DVTs I think it is very low probability that this is again a DVT and is more likely muscle tenderness. It is 3:30 AM so the patient will be scheduled for a left leg ultrasound in the morning. I encouraged her to try some ibuprofen for pain control. Departure - Departure Time of Disposition: 04:19 Disposition: Home, Self-Care 01 Clinical Impression: Strain of left hamstring muscle Qualifiers: Encounter type: initial encounter Qualified Code(s): S76.312A - Strain of muscle, fascia and tendon of the posterior muscle group at thigh level, left thigh, initial encounter - Discharge Information Instructions: Muscle Strain, [id number] Referrals: Tirso Glass MD [Primary Care Provider] - Forms: ED Department Discharge Care Plan Goals: Try ibuprofen and a heating pad, gentle stretching may help, and increase activity as tolerated. They will call you tomorrow morning to confirm a time to come in for an ultrasound and if positive you will recheck with the emergency room doctor. Sepsis Event Note - Evaluation Sepsis Screening Result: No Definite Risk - Focused Exam Vital Signs: Vital Signs Temp Pulse Resp BP Pulse Ox 10/19/19 03:37 97.2 F 61 14 115/71 99 Date Exam was Performed: 10/19/19 Time Exam was Performed: 06:13
== END 2019-10-19 04:20 | disposition home or self-care (01) ==
LOC: JP.ED 03:25
DX: S76.312A Strain of muscle, fascia and tendon of the posterior muscle group at thigh level, left thigh, initial encounter (principal); X58.XXXA Exposure to other specified factors, initial encounter; H54.7 Unspecified visual loss; H91.90 Unspecified hearing loss, unspecified ear; E78.00 Pure hypercholesterolemia, unspecified; K21.9 Gastro-esophageal reflux disease without esophagitis; K58.1 Irritable bowel syndrome with constipation; M19.90 Unspecified osteoarthritis, unspecified site; F32.9 Major depressive disorder, single episode, unspecified; E03.9 Hypothyroidism, unspecified; E66.9 Obesity, unspecified; Z90.49 Acquired absence of other specified parts of digestive tract; Z68.28 Body mass index [BMI] 28.0-28.9, adult; Z86.718 Personal history of other venous thrombosis and embolism; Z88.5 Allergy status to narcotic agent; Z88.8 Allergy status to other drugs, medicaments and biological substances; Z88.1 Allergy status to other antibiotic agents; Z91.030 Bee allergy status; Z79.899 Other long term (current) drug therapy; Z86.010 Personal history of colon polyps; Z85.819 Personal history of malignant neoplasm of unspecified site of lip, oral cavity, and pharynx; Z87.440 Personal history of urinary (tract) infections; Z92.3 Personal history of irradiation; Z79.890 Hormone replacement therapy
CPT/HCPCS: 99283

== ENCOUNTER 2019-12-14 11:38 | Emergency (ER) | payer MEDICAID ==
--- NOTE | 2019-12-14 12:26 | EDM.PDOC ---
ED HPI GENERAL MEDICAL PROBLEM - General Chief Complaint: Respiratory Problem Stated Complaint: SHORTNESS OF BREATH Time Seen by Provider: 12/14/19 12:05 Source of Information: Reports: Patient, Old Records History Limitations: Reports: No Limitations - History of Present Illness INITIAL COMMENTS - FREE TEXT/NARRATIVE: 64 yo female presents with dyspnea. Sx's are worse with activity. Denies fever, cough or chest pain. No LE edema or calf pain. Sx's have been present for over 2 weeks. During this interval of time she has been seen and hospitalized at [facility] in [place], [place] where she had an ECHO and IV fluids, her primary who referred her for a nuclear medicine stress test(normal results). So far nothing has been found. Sx's are not worse today but comes to the ER instead of following up with her primary care provider. Is certain that this is not due to anxiety. Onset: Unknown/Unsure Duration: Week(s):, Chronic, Constant Location: Reports: Chest Quality: Reports: Other (no pain) Severity: Moderate Improves with: Reports: Rest Worsens with: Reports: Movement Context: Reports: Other (see HPI) Associated Symptoms: Reports: Shortness of Breath. Denies: Chest Pain, Cough, Fever/Chills Treatments [employer]: Reports: Other (see below) (none) - Related Data Allergies Allergy/AdvReac Type Severity Reaction Status Date / Time piroxicam [From Feldene] Allergy Rash Verified 12/14/19 11:57 propoxyphene napsylate Allergy Swelling Verified 12/14/19 11:57 [From Darvocet-N] sulfamethoxazole Allergy Rash Verified 12/14/19 11:57 [From Bactrim] tizanidine Allergy Cannot Verified 12/14/19 11:57 Remember trimethoprim [From Bactrim] Allergy Rash Verified 12/14/19 11:57 venom-honey bee Allergy Swelling Verified 12/14/19 11:57 [bee venom (honey bee)] codeine AdvReac Hallucinati Verified 12/14/19 11:57 ons morphine AdvReac Hallucinati Verified 12/14/19 11:57 ons pentazocine lactate AdvReac Hallucinati Verified 12/14/19 11:57 [From Gagan] ons environmental Allergy Cannot Uncoded 12/14/19 11:57 Remember Home Meds: Home Meds Cetirizine HCl/Pseudoephedrine [ZyrTEC-D] 10 mg PO DAILY PRN 06/22/14 [History] Sertraline [Zoloft] 100 mg PO DAILY 06/22/14 [History] Acetaminophen 1,000 mg PO Q4H PRN 09/17/14 [History] Cranberry 1,000 mg PO DAILY 02/03/15 [History] Levothyroxine [Synthroid] 25 mcg PO DAILY 10/01/15 [History] Diclofenac Sodium [Voltaren] 4 g TP QID PRN 04/20/19 [History] Clotrimazole 3 drop EARLF BID 09/02/19 [History] Fluticasone Propionate [Flonase] 2 spray PAWAN DAILY 12/07/19 [History] Gentamicin [Garamycin 0.3% Ophth Soln] 5 drop EARLF TID 12/07/19 [History] Triamcinolone Acetonide [Triamcinolone Acetonide 0.1% Crm] 1 appful TOP BID [History] Past Medical History HEENT History: Reports: Allergic Rhinitis, Cataract, Hard of Hearing, Impaired Vision, Otitis Media, Sinusitis, Other (See Below) 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 Cardiovascular History: Reports: High Cholesterol, Other (See Below) Other Cardiovascular History: abnormal EKG Respiratory History: Reports: Bronchitis, Recurrent Gastrointestinal History: Reports: Chronic Constipation, Colon Polyp, Gastritis , GERD, Hiatal Hernia, Irritable Bowel Syndrome, Other (See Below) Other Gastrointestinal History: colon adenoma Genitourinary History: Reports: UTI, Recurrent, Other (See Below) Other Genitourinary History: urinary frequency [employer]ER History: Reports: Fibroids, Polycystic Ovaries Musculoskeletal History: Reports: Osteoarthritis, Other (See Below) Other Musculoskeletal History: degenerative joint disease Neurological History: Reports: Concussion, Vertigo, Other (See Below) Other Neuro History: left ear deaf Psychiatric History: Reports: Depression Endocrine/Metabolic History: Reports: Hypothyroidism, Obesity/BMI 30+, Osteoporosis Oncologic (Cancer) History: Reports: Other (See Below) Other Oncologic History: positive colon biopsy, nasopharyngeal cancer. Dermatologic History: Reports: Eczema, Other (See Below) Other Dermatologic History: hands eczema - Infectious Disease History Infectious Disease History: Reports: Chicken Pox, Measles, Mumps - Past Surgical History HEENT Surgical History: Reports: Cataract Surgery, Myringotomy w Tube(s) GI Surgical History: Reports: Appendectomy, Cholecystectomy, Colonoscopy, EGD, Falguni Fundoplication Musculoskeletal Surgical History: Reports: Arthroscopic Knee, Carpal Tunnel, Ganglion Cyst, Hip Replacement, Shoulder Surgery, Other (See Below) Other Musculoskeletal Surgeries/Procedures:: foot surgery, rotator cuff repair Oncologic Surgical History: Reports: Other (See Below) Social & Family History - Family History Family Medical History: Noncontributory HEENT: Reports: Cataract, Impaired Vision Cardiac: Reports: Bypass, [place], Pacemaker Musculoskeletal: Reports: Osteoarthritis, Osteoporosis, RA Endocrine/Metabolic: Reports: Diabetes, type II, Hypothyroidism Oncologic: Reports: Colon - Tobacco Use Smoking Status *Q: Never Smoker - Caffeine Use Caffeine Use: Reports: None ED ROS GENERAL - Review of Systems Review Of Systems: See Below Constitutional: Reports: No Symptoms HEENT: Reports: No Symptoms Respiratory: Reports: Shortness of Breath. Denies: Wheezing, Pleuritic Chest Pain, Cough, Sputum, Hemoptysis Cardiovascular: Reports: No Symptoms Endocrine: Reports: No Symptoms GI/Abdominal: Reports: No Symptoms : Reports: No Symptoms Musculoskeletal: Reports: No Symptoms Skin: Reports: No Symptoms Neurological: Reports: No Symptoms Psychiatric: Reports: No Symptoms ED EXAM, GENERAL - Physical Exam Exam: See Below Exam Limited By: No Limitations General Appearance: Alert, WD/WN, No Apparent Distress Eye Exam: Bilateral Eye: Normal Inspection, PERRL Ears: Normal External Exam, Normal Canal, Hearing Grossly Normal, Normal TMs Ear Exam: Bilateral Ear: Auricle Normal, Canal Normal, TM normal Nose: Normal Inspection, No Blood Throat/Mouth: Normal Inspection, Normal Lips, Normal Oropharynx, Normal Voice, No Airway Compromise Head: Atraumatic, Normocephalic Neck: Normal Inspection Respiratory/Chest: No Respiratory Distress, Lungs Clear, Normal Breath Sounds, No Accessory Muscle Use Cardiovascular: Regular Rate, Rhythm, No Edema, No Murmur GI/Abdominal: Normal Bowel Sounds Back Exam: Normal Inspection. No: CVA Tenderness (R), CVA Tenderness (L) Extremities: Normal Inspection, Normal Range of Motion, Non-Tender, No Pedal Edema Neurological: Alert, Oriented, CN II-XII Intact, Normal Cognition, No Motor/ Sensory Deficits Psychiatric: Normal Affect, Tearful Skin Exam: Warm, Dry, Intact, Normal Color, No Rash Course - Vital Signs Text/Narrative:: ECHO from [facility]: EF 60%. Mild tricuspid regurgitation, mild LA dilatation. Aortic valve has some sclerosis. Trace aortic regurgitation. Trivial pulmonic valve regurgitation. Date 11/29/2019. Patient was ambulated in the ER and her oxygen saturations remained in the 96-97 % range. Per RN took rapid shallow breaths during this activity so appeared dyspneic. Last Recorded V/S: Last Vital Signs Temp 36.6 C 12/14/19 12:05 Pulse 70 12/14/19 12:43 Resp 16 12/14/19 12:43 BP 100/62 12/14/19 12:43 Pulse Ox 98 12/14/19 12:43 - Orders/Labs/Meds Labs: Laboratory Tests 12/14/19 12/14/19 12/14/19 Range/Units 12:30 12:30 12:30 WBC 4.5 (4.5-11.0) K/uL RBC 3.68 (3.30-5.50) M/uL Hgb 12.3 (12.0-15.0) g/dL Hct 35.7 L (36.0-48.0) % MCV 97 (80-98) fL MCH 33 H (27-31) pg MCHC 35 (32-36) % Plt Count 175 (150-400) K/uL D-Dimer, Quantitative 165 (0.0-400.0) ng/mL Sodium 141 (140-148) mmol/L Potassium 4.1 (3.6-5.2) mmol/L Chloride 106 (100-108) mmol/L Carbon Dioxide 24 (21-32) mmol/L Anion Gap 11.1 (5.0-14.0) mmol/L BUN 18 (7-18) mg/dL Creatinine 1.3 H (0.6-1.0) mg/dL Est Cr Clr Drug Dosing 40.38 mL/min Estimated GFR (MDRD) 42 L (>60) Glucose 86 (74-106) mg/dL Calcium 9.0 (8.5-10.1) mg/dL Meds: Medications Discontinued Medications Generic Name Dose Route Start Last Admin Trade Name Freq PRN Reason Stop Dose Admin Lorazepam 0.5 mg 12/14/19 12:46 02/21/20 13:18 Ativan PO 12/14/19 12:47 0.5 mg ONETIME ONE Administration Departure - Departure Time of Disposition: 13:59 Disposition: Home, Self-Care 01 Condition: Good Clinical Impression: Physical deconditioning - Discharge Information *PRESCRIPTION DRUG MONITORING PROGRAM REVIEWED*: No *COPY OF PRESCRIPTION DRUG MONITORING REPORT IN PATIENT LILIBETH: No Referrals: Tirso Glass MD [Primary Care Provider] - Forms: ED Department Discharge Additional Instructions: Get as much exercise as you can every day. F/U with your doctor as needed. Sepsis Event Note - Evaluation Sepsis Screening Result: No Definite Risk - Focused Exam Vital Signs: Vital Signs Temp Pulse Resp BP Pulse Ox 12/14/19 12:43 70 16 100/62 98 12/14/19 12:05 36.6 C 61 16 93/58 L Date Exam was Performed: 12/14/19 Time Exam was Performed: 13:59
[2019-12-14] MEDS ORDERED: LORazepam 0.5 MG Tab PO ONE (12:46)
[2019-12-14 13:35] VITALS: BP 100/62; PULSE 70
== END 2019-12-14 14:22 | disposition home or self-care (01) ==
LOC: JP.ED 11:38
DX: R53.81 Other malaise (principal); M19.90 Unspecified osteoarthritis, unspecified site; F32.9 Major depressive disorder, single episode, unspecified; E03.9 Hypothyroidism, unspecified; E66.9 Obesity, unspecified; Z68.27 Body mass index [BMI] 27.0-27.9, adult; Z88.8 Allergy status to other drugs, medicaments and biological substances; Z88.2 Allergy status to sulfonamides; Z88.5 Allergy status to narcotic agent; Z91.030 Bee allergy status; Z91.048 Other nonmedicinal substance allergy status; Z79.899 Other long term (current) drug therapy
CPT/HCPCS: 36415; 80048; 85027; 85379; 99284; A9270

== ENCOUNTER 2022-04-14 14:56 | Emergency (ER) | payer SELFPAY ==
[2022-04-14 15:27] VITALS: BP 111/63; PULSE 61
[2022-04-14 16:36] LABS: ESTIMATED GFR 46 mL/min (>60)
== END 2022-04-14 17:59 | disposition home or self-care (01) ==
LOC: JP.ED 14:56
DX: S33.8XXA Sprain of other parts of lumbar spine and pelvis, initial encounter (principal); E83.51 Hypocalcemia; E78.00 Pure hypercholesterolemia, unspecified; K21.9 Gastro-esophageal reflux disease without esophagitis; E03.9 Hypothyroidism, unspecified; E66.9 Obesity, unspecified; Z68.26 Body mass index [BMI] 26.0-26.9, adult; Z88.1 Allergy status to other antibiotic agents; Z91.030 Bee allergy status; Z88.8 Allergy status to other drugs, medicaments and biological substances; Z88.5 Allergy status to narcotic agent; Z79.899 Other long term (current) drug therapy; W18.30XA Fall on same level, unspecified, initial encounter
CPT/HCPCS: 36415; 72220; 72220-26; 80053; 83735; 99282; 99283

== ENCOUNTER 2023-01-21 06:17 | Day surgery (SDC) | payer MEDICARE ==
[2023-01-21] MEDS ORDERED: Sodium Chloride 0.9% 1,000 ML IV SCH (07:00)
[2023-01-21] MEDS ORDERED: Propofol 200 MG/20 ML SDV ONE (07:38)
[2023-01-21 09:14] VITALS: BP 133/85; PULSE 57
== END 2023-01-21 09:15 | disposition home or self-care (01) ==
LOC: JP.SDS 06:17
PROVIDERS: ATTEND Surgery
DX: K21.9 Gastro-esophageal reflux disease without esophagitis (principal); K22.89 Other specified disease of esophagus; R10.13 Epigastric pain; K29.50 Unspecified chronic gastritis without bleeding
CPT/HCPCS: 43239; J2704; J7030; 88305

== ENCOUNTER 2025-01-02 07:09 | Day surgery (SDC) | payer MEDICARE ==
[~2025-01-02 07:09] MED LIST changes: -Dextrose 5%-Lactated Ringers 1,000 ML IV SCH
[2025-01-02] MEDS: Lactated Ringers 1,000 ML IV SCH (07:43)
[2025-01-02] MEDS: ceFAZolin 2 GM in Premix Bag 1 BAG IV ONE (08:20)
[2025-01-02] MEDS: Bupivacaine 0.25%/EPINEPHrine 1:200,000 30 ML SDV ONE (08:45)
[2025-01-02 10:28] VITALS: BP 121/79; PULSE 60
== END 2025-01-02 10:50 | disposition home or self-care (01) ==
LOC: JP.SDS 07:09
PROVIDERS: ATTEND Surgery
DX: E83.110 Hereditary hemochromatosis (principal)
CPT/HCPCS: 36561; 76000; C1788; C1894; J0690; J1642; J2250; J2704; J3010; J7120; 00532-QZ

== ENCOUNTER 2025-09-27 12:25 | Emergency (ER) | payer MEDICARE ==
[2025-09-27 13:09] VITALS: PULSE 71
[2025-09-27 13:54] LABS: BASOPHILS PERCENT AUTO 0.6 % (0.1-1.3); EOSINOPHILS ABSOLUTE AUTO 0.07 K/uL (0.00-0.40); EOSINOPHILS PERCENT AUTO 2.1 % (0.0-5.4); IMMATURE GRAN ABSOLUTE AUTO 0.03 K/uL (0.00-0.23); IMMATURE GRAN PERCENT AUTO 0.9 % (0.0-0.7); LYMPHOCYTES ABSOLUTE AUTO 0.84 K/uL (0.8-3.3); LYMPHOCYTES PERCENT AUTO 24.7 % (11.4-47.7); MONOCYTES ABSOLUTE AUTO 0.27 K/uL (0.20-0.90); MONOCYTES PERCENT AUTO 7.9 % (3.3-12.6); NEUTROPHILS ABSOLUTE AUTO 2.17 K/uL (1.0-7.6); NEUTROPHILS PERCENT AUTO 63.8 % (40.0-78.1); PLATELET COUNT,PLT 161 K/uL (130-375); RED BLOOD CELL COUNT 3.39 M/uL (3.77-5.24); WHITE BLOOD CELL COUNT,WBC 3.4 K/uL (3.2-11.0)
[2025-09-27 13:55] LABS: BASOPHILS ABSOLUTE AUTO 0.02 K/uL (0.00-0.10)
[2025-09-27 14:16] LABS: A/G RATIO 1.0 (1.2-2.2); ALANINE AMINOTRANSFERASE,ALT 20 U/L (12-78); ASPARTATE AMNIOTRANSFERASE,AST 25 U/L (15-37); BILIRUBIN TOTAL 0.6 mg/dL (0.2-1.0); BLOOD UREA NITROGEN,BUN 18 mg/dL (7-18); CARBON DIOXIDE,CO2 26 mmol/L (21-32); CHLORIDE,CL 103 mmol/L (100-108); CREATININE 1.2 mg/dL (0.6-1.0); EST CRCL DRUG DOSING (CG) 35.98 mL/min; ESTIMATED GFR 50 mL/min (>60); GLUCOSE RANDOM 85 mg/dL (74-106); POTASSIUM,K 4.5 mmol/L (3.6-5.2); PROTEIN TOTAL,TP 6.8 g/dL (6.4-8.2); SODIUM,NA 138 mmol/L (140-148)
[2025-09-27 14:26] LABS: TROPONIN I HIGH SENSITIVITY 4.4 pg/mL (<=60.3); TSH ULTRASENSITIVE 4.765 uIU/mL (0.358-3.740)
[2025-09-27 15:32] LABS: APPEARANCE,URINE SLIGHTLY CLOUDY (CLEAR); GLUCOSE,URINE NEGATIVE (NEGATIVE); OCCULT BLOOD,URINE TRACE-LYSED (NEGATIVE)
[2025-09-27 15:36] VITALS: BP 147/81
[2025-09-27 15:40] LABS: SQUAMOUS EPITHELIAL CELLS,UR FEW /HPF; UROTHELIAL CELLS,URINE NOT SEEN /HPF
== END 2025-09-27 18:34 | disposition home or self-care (01) ==
LOC: JP.ED 12:25
DX: E86.0 Dehydration (principal); F43.20 Adjustment disorder, unspecified; E03.9 Hypothyroidism, unspecified; K21.9 Gastro-esophageal reflux disease without esophagitis; Z90.49 Acquired absence of other specified parts of digestive tract; Z87.891 Personal history of nicotine dependence; Z88.1 Allergy status to other antibiotic agents; Z88.5 Allergy status to narcotic agent; Z88.8 Allergy status to other drugs, medicaments and biological substances; Z91.030 Bee allergy status; Z91.048 Other nonmedicinal substance allergy status; Z79.890 Hormone replacement therapy; Z79.899 Other long term (current) drug therapy
CPT/HCPCS: 36415; 51701; 71045; 80053; 81001; 83605; 83735; 84443; 84484; 85025; 93005; 93010; 96360; 99284; J7030